=== PATIENT | female | born 1960 | race African-American/Black ===

== ENCOUNTER → 2017-01-06 | Outpatient (CLI) | payer OTHER ==
[2016-03-26 04:44] VITALS: BP 144/86
--- NOTE | 2017-01-06 12:15 | MG ---
HISTORY: SCREENING Comparison: Multiple priors dating back to 2007 FINDINGS: Bilateral CC and MLO projections of the right and left breast were obtained. Heterogeneously dense fibroglandular tissue is seen to be present without suspicious interval change. No significant arch itectural distortion, mass or clustered microcalcifications can be observed to suggest malignancy. No skin thickening or nipple retraction is appreciated. No pathological lymphadenopathy can be alfredo ntified. IMPRESSION: NO RADIOGRAPHIC EVIDENCE OF MALIGNANCY. ACR CATEGORY I - NEGATIVE EXAM. FOLLOW-UP EXAM 1 YEAR. Diagnostic CAD was utilized and reviewed. * 0 (ZERO) - ASSESSMENT INCOMPLETE; ADDITIONAL IMAGING IS NEEDED. * / (ONE) - NEGATIVE. * 2/II (TWO) - BENIGN FINDINGS. * 3/III (THREE) - PROBABLY BENIGN FINDING; SHORT INTERVAL FOLLOW-UP SUGGESTED. * 4/IV (FOUR) - SUSPICIOUS ABNORMALITY; BIOPSY SHOULD BE CONSIDERED. * 5/V (FIVE) - HIGHLY SUSPICIOUS OF MALIGNANCY; BIOPSY SHOULD BE PERFORMED. A NEGATIVE X-RAY REPORT SHOULD NOT DELAY BIOPSY IF A DOMINANT OR CLINICALLY SUSPICIOUS MASS IS PRESENT; 4 TO 8 PERCENT OF CANCERS ARE NOT IDENTIFIED BY X-RAY. A NEG ATIVE REPORT MAY REINFORCE THE CLINICAL IMPRESSION. ADENOSIS AND DENSE BREASTS MAY OBSCURE AN UNDER LYING NEOPLASM. Reported By:
== END ==
LOC: RAD 09:54
PROVIDERS: ATTEND Internal Medicine
DX: Z12.31 Encounter for screening mammogram for malignant neoplasm of breast (principal)
CPT/HCPCS: 77067

== ENCOUNTER 2017-08-30 19:51 | Emergency (ER) | payer SELFPAY ==
[2017-08-30 20:16] VITALS: BMI 30.7
[2017-08-30] MEDS ORDERED: TORADOL 30 MG VIAL IVP ONE (20:44)
[2017-08-30] MEDS ORDERED: NS 1000 ML 1,000 ML ONE (20:46)
--- NOTE | 2017-08-30 20:46 | DR.GENAD ---
HPI - PCP Primary Care Physician: - Complaint/Symptoms Chief Complaint Doctors Comments: Patient presents to the ED with complaint of headache, cough, congestion and body aches for two days. She denies getting influenza shot. Chief Complaint:: HEAD IS ABOUT TO BUST, COUGHING, SORE THROAT BODY HURTS ALL OVER - Source History Provided: Patient - Mode of Arrival Mode of Arrival: Ambulatory - Timing Onset of Chief Complaint: 08/29/17 PMH - PMH Past Medical History: Yes Past Medical History: Hypertension Past Surgical History: Yes Surgical History: Hysterectomy - Family History History of Family Medical Conditions: Yes Family Medical History: Cancer, Hypertension - Social History Does patient currently use any type of tobacco product: No Have you used tobacco products in the last 12 months: No Type of Tobacco Use: None Does any household member use tobacco: Yes Alcohol Use: Occasionally Do you use any recreational Drugs:: No Lives With: Family Lives Where: Home - infectious screening In the last 2 months have you had wt loss of >10#?: YES Have you had fever, night sweats or hemotysis?: No Have you traveled outside the country in the last 6 months?: No Isolation: Standard ROS - Review of Systems Eyes: No Symptoms Reported ENTM: Nose Discharge Respiratoy: No Symptoms Reported Cardiovascular: No Symptoms Reported Gastrointestinal/Abdominal: No Symptoms Reported Genitourinary: No Symptoms Reported Neurological: Headache Musculoskeletal: Muscle Pain Integumentary: No Symptoms Reported Hematologic/Lymphatic: No Symptoms Reported Endocrine: No Symptoms Reported Psychiatric: No Symptoms Reported All Other Systems: Reviewed and Negative PE - Vital Signs Vitals: Temperature 99.5 F Pulse Rate 118 Respiratory Rate 24 Blood Pressure [Right Arm] 144/86 Blood Pressure [Left Arm] 200/100 Blood Pressure 122/90 O2 Sat by Pulse Oximetry 98 - General General Appearance: Alert, In No Apparent Distress - Head Head Exam: Normal Inspection, Atraumatic - Eyes Eye exam: Normal Appearance, PERRL, EOMI - ENT ENT Exam: Normal Exam External Ear Exam: Normal External Inspection TM/Canal Exam: Bilateral Normal Nose Exam: Normal Nose Exam Mouth Exam: Normal Inspection Throat Exam: Normal Inspection - Neck Neck Exam: Normal Inspection - Chest Chest Inspection: Normal Inspection, Symmetric Chest Wall Rise - Respiratory Respiratory Exam: Normal Lung Sounds Bilat Respiratory Exam: Bilateral Clear to Auscultation - Cardiovascular Cardiovascular Exam: Regular Rate, Tachycardia - Abdominal Exam Abdominal Exam: Normal Inspection Abdominal Tenderness: negative: RUQ, RLQ, LUQ, LLQ, Epigastrium, Suprapubic, Diffuse, Mild, Moderate, Severe, Other - Extremities Extremities Exam: Normal Inspection - Back Back Exam: Normal Inspection - Neurologic Neurological Exam: Alert, Oriented X3, CN II-XII Intact - Psychiatric Psychiatric Exam: Normal Affect - Skin Skin Exam: Warm, Dry, Intact Course - Reevaluation 1st: Improved ROR - Labs Reviewed Laboratory Results Reviewed?: Yes (influenza A positive) Laboratory: Streptococcus Screen Negative (NEGATIVE) 08/30/17 20:38 - Diagnosis Discharge Problem: Influenza A - Discharge Plan Condition: Stable - Follow ups/Referrals Follow ups/Referrals: VANIA FERNANDEZ [Primary Care Provider] - 3 days - Instructions
[2017-08-30] MEDS ORDERED: TORADOL 30 MG VIAL ONE (20:57)
--- NOTE | 2017-08-30 21:44 | RAD ---
Chest, AP portable Indication: Cough, fever Comparison: 03/24/2016 Findings: The heart size is normal. The lungs are clear without focal infiltrates or pleural effusion . Impression: No acute chest process or significant change from prior. Reported By:
[2017-08-30 22:03] VITALS: BP 148/80
== END 2017-08-30 21:52 | disposition home or self-care (01) ==
LOC: ER 19:51
DX: R05 Cough (principal); R09.89 Other specified symptoms and signs involving the circulatory and respiratory systems; R52 Pain, unspecified
CPT/HCPCS: 71010; 87070; 87502; 87880; 96365; 96374; 99283; A4222; J1885

== ENCOUNTER 2019-06-30 11:24 | Observation (INO) ==
[2019-06-30] MEDS ORDERED: ZOFRAN INJ 4 MG VIAL IVP PRN (13:36)
[2019-06-30 13:39] VITALS: BMI 19.8
[2019-06-30 13:58] LABS: BASOPHILS % (AUTO) 1.2 % (0.2-1.0); EOSINOPHILS % (AUTO) 0.8 % (0.9-2.9); HEMATOCRIT 35.4 % (36.0-47.0); HEMOGLOBIN 12.5 g/dL (12.0-16.0); LYMPHOCYTES # (AUTO) 1.5 X10^3/uL (1.3-2.9); LYMPHOCYTES % (AUTO) 43.2 % (21.0-51.0); MEAN CORPUSCULAR HGB CONC 35.3 g/dL (33.0-35.0); MEAN CORPUSCULAR VOLUME 90.6 fL (80.0-100.0); MEAN PLATELET VOLUME 6.6 fL (7.4-11.0); MONOCYTES # (AUTO) 0.5 x10^3/uL (0.3-0.8); MONOCYTES % (AUTO) 13.7 % (0.0-13.0); NEUTROPHILS # (AUTO) 1.5 x10^3/uL (2.2-4.8); NEUTROPHILS % (AUTO) 41.1 % (42.0-75.0); PLATELET COUNT 161 X10^3/uL (150.0-450.0); WHITE BLOOD COUNT 3.5 X10^3/uL (3.6-10.0)
--- NOTE | 2019-06-30 14:01 | RAD ---
HISTORY: Hypertension Study: Chest AP portable Comparison: 06/02/2019 Findings: The heart is within normal limits in size. The mary are normal. The lungs are well inflated and free of acute alveolar infiltrates. No pleural effusions are identified. The bony thorax is unremarkable. IMPRESSION: No significant abnormality identified Reported By:
[2019-06-30 14:09] LABS: ALANINE AMINOTRANSFERASE 83 Units/L (12-78); ALBUMIN 3.6 g/dL (3.4-5.0); ALKALINE PHOSPHATASE 83 Units/L (46-116); AMYLASE 137 Units/L (25-115); ASPARTATE AMINO TRANSFERASE 279 Units/L (15-37); BLOOD UREA NITROGEN 3 mg/dL (7-18); CALCIUM 8.7 mg/dL (8.5-10.1); CARBON DIOXIDE 26.8 mmol/L (21-32); CHLORIDE 100 mmol/L (98-107); COR NA(FOR HYPERGLY) 138 mmol/L (136-145); CREATININE 0.58 mg/dL (0.55-1.02); LIPASE 648 Units/L (73-393); MAGNESIUM 1.7 mg/dL (1.7-2.9); SODIUM 138 mmol/L (136-145); TOTAL PROTEIN 7.6 g/dL (6.4-8.2); eGFR NON BLACK RACES > 60 (>60)
[2019-06-30] MEDS: PROTONIX INJ 40 MG VIAL IVP SCH (15:28)
[2019-06-30] MEDS: NS 1000 ML 1,000 ML IV SCH (15:28)
[2019-06-30 15:44] LABS: BILIRUBIN,URINE NEGATIVE (NEGATIVE); BLOOD/HEMOGLOBIN,URINE NEGATIVE (NEGATIVE); GLUCOSE, URINE NEGATIVE (NEGATIVE); KETONES,URINE NEGATIVE (NEGATIVE); LEUKOCYTE ESTERASE ,URINE NEGATIVE (NEGATIVE); NITRITES,URINE NEGATIVE (NEGATIVE); PROTEIN,URINE NEGATIVE (NEGATIVE); UROBILINOGEN,URINE NORMAL (NORMAL)
[2019-06-30 15:49] LABS: APPEARANCE,URINE CLEAR (CLEAR); COLOR,URINE YELLOW (YELLOW)
--- NOTE | 2019-06-30 16:48 | CT ---
History: Abdominal pain and unexplained weight loss Study: CT of abdomen and pelvis after oral enhancement of the gastrointestinal tract and after intravenous infusion of 100 mL Omnipaque 350. Comparison: None Findings: The visualized lung bases are clear. The liver and spleen and pancreas and adrenal glands are unremarkable. The kidneys are unremarkable without mass or hydronephrosis. There is no bowel distention or inflammation. There is no ascites or adenopathy. The prostate is prominent in size. The urinary bladder is unremarkable. No significant bony abnormality is demonstrated. The gallbladder is unremarkable. The uterus is apparently absent. No adnexal mass is demonstrated. Impression: Negative CT abdomen and pelvis Reported By:
--- NOTE | 2019-06-30 17:25 | DR.H&P ---
H&P - History & Physical for Day of: H&P Date: 06/30/19 - Chief Complaint Chief Complaint: weakness, "CAN'T EAT" weight loss, diarrhea, upper abdominal pain - History of Present Illness History of Present Illness: 59 [address] IRVING OFFICE AFTER PRESENTING WITH CO ELEVATED BP, BEEN OUT OF MEDICATION, ABDOMINAL PAIN WITH UNEXPLAINED WEIGHT LOSS, DYSPHAGIA AND DIARRHEA. PT BP IN OFFICE 190/110. PT WAS GIVEN CATAPRES .1. PT STATES SHE WAS SEEN IN ER ON 06/02 AND DIAGNOSED WITH BRONCHITIS, COMPLETED AMOXIL BY CONTINUES WITH SORE THROAT, TROUBLE SWALLOWING AND THROWS UP AFTER EATING ANYTHING. PT REPORTS BASE WEIGHT 120LBS, PT WEIGHT IN OFFICE 94 LBS. PT HAS PMH OF HTN. PT ADMITTED FOR TREATMENT OF ACUTE ILLNESS. - Past Medical History Past Medical History: Hypertension - Past Surgical History Surgical History: Hysterectomy - Family History Family Medical History: Cancer, Hypertension - Social History Does patient currently use any type of tobacco product: Yes Have you used tobacco products in the last 12 months: No Type of Tobacco Use: Smokeless How many years tobacco product used: 40 Does any household member use tobacco: No Alcohol Use: DAILY Drug Use: None - Medications Home Medications: No Known Drug Allergies Allergy (Verified 05/06/18 09:21) - Review of Systems Constitutional: Chills, Weakness, Malaise Eyes: No Symptoms Reported ENT: Throat Pain Respiratory: SOB with Excertion Cardiovascular: Light Headedness Gastrointestinal: Nausea, Vomiting, Abdominal Pain, Diarrhea Genitourinary: No Symptoms Reported Musculoskeletal: No Symptoms Reported Skin: No Symptoms Reported Neurological: Weakness - Physical Exam Vital Signs: Temperature 98.6 F Pulse Rate [Left Brachial] 80 Respiratory Rate 18 Blood Pressure [Right Arm] 157/93 Blood Pressure [Left Arm] 175/100 Blood Pressure 198/100 O2 Sat by Pulse Oximetry 98 Oriented: Normal Ear: Normal Nose: Normal Throat: Red, Other (ERYTHEMATOUS LESIONS TO POSTERIOR PHARYNX) Respiratory: RLL Diminished, LLL Diminished Cardiovascular: Normal, Irregular. negative: Edema Auscultation: Bowel Sounds: Normal Tenderness: RUQ, LUQ, Epigastric, Moderate Skin: Decreased Turgur Musculoskeletal: Normal Psychiatric: Anxiety Affect: Anxious Speech Pattern: Clear, Appropriate - Assessment/Plan (1) Severe uncontrolled hypertension Status: Acute Plan: ADMIT, ADMISSION LABS. ACUTE HEPATITIS PANEL. CT ABD PELVIS. CXR, EKG ON ADMISSION. UA, BP CONTROL, PRN HYDRALAZINE, IV HYDRATION , GI CONSULT (2) Abdominal pain Status: Acute (3) Dysphagia Status: Acute (4) Chronic diarrhea Status: Acute (5) Unintentional weight loss Status: Acute - Allergies Allergies/Adverse Reactions: Allergies Allergy/AdvReac Type Severity Reaction Status Date / Time No Known Drug Allergies Allergy Verified 05/06/18 09:21
[2019-06-30] MEDS: APRESOLINE INJ 20 MG VIAL IVP PRN ×2 (17:28→23:08)
[2019-07-01] MEDS: NS 1000 ML 1,000 ML IV SCH ×3 (03:23→18:07)
[2019-07-01 05:22] LABS: BASOPHILS # (AUTO) 0.1 X10^3/uL (0.0-0.1); BASOPHILS % (AUTO) 1.1 % (0.2-1.0); EOSINOPHILS % (AUTO) 0.2 % (0.9-2.9); HEMATOCRIT 36.3 % (36.0-47.0); HEMOGLOBIN 12.8 g/dL (12.0-16.0); LYMPHOCYTES # (AUTO) 1.2 X10^3/uL (1.3-2.9); LYMPHOCYTES % (AUTO) 24.2 % (21.0-51.0); MEAN CORPUSCULAR HEMOGLOBIN 31.9 pg (27.0-34.0); MEAN CORPUSCULAR HGB CONC 35.4 g/dL (33.0-35.0); MEAN CORPUSCULAR VOLUME 90.3 fL (80.0-100.0); MEAN PLATELET VOLUME 7.1 fL (7.4-11.0); MONOCYTES # (AUTO) 0.9 x10^3/uL (0.3-0.8); MONOCYTES % (AUTO) 18.9 % (0.0-13.0); NEUTROPHILS # (AUTO) 2.7 x10^3/uL (2.2-4.8); NEUTROPHILS % (AUTO) 55.6 % (42.0-75.0); PLATELET COUNT 168 X10^3/uL (150.0-450.0); RED BLOOD COUNT 4.02 X10^6/uL (3.5-5.4); RED CELL DISTRIBUTION WIDTH 13.9 % (11.6-16.5); WHITE BLOOD COUNT 4.8 X10^3/uL (3.6-10.0)
[2019-07-01 05:43] LABS: ALANINE AMINOTRANSFERASE 64 Units/L (12-78); ALBUMIN 3.4 g/dL (3.4-5.0); ALKALINE PHOSPHATASE 75 Units/L (46-116); ASPARTATE AMINO TRANSFERASE 115 Units/L (15-37); BLOOD UREA NITROGEN 3 mg/dL (7-18); CALCIUM 8.9 mg/dL (8.5-10.1); CARBON DIOXIDE 23.3 mmol/L (21-32); CHLORIDE 101 mmol/L (98-107); CREATININE 0.52 mg/dL (0.55-1.02); SODIUM 138 mmol/L (136-145); TOTAL PROTEIN 7.4 g/dL (6.4-8.2); eGFR NON BLACK RACES > 60 (>60)
[2019-07-01 06:16] LABS: AMYLASE 121 Units/L (25-115); LIPASE 538 Units/L (73-393)
[2019-07-01] MEDS ORDERED: KLOR-CON PO PRN (07:27)
[2019-07-01] MEDS ORDERED: POTASSIUM CHL 60 MEQ/NS 0.45% 500 ML IV PRN (07:27)
[2019-07-01] MEDS ORDERED: MICRO K EXTEN CAP 10 MEQ PO PRN (07:27)
[2019-07-01] MEDS ORDERED: POTASSIUM CHL 40 MEQ/NS 0.45% 500 ML IV PRN (07:27)
[2019-07-01] MEDS ORDERED: K-DUR TAB 20 MEQ PO PRN (07:27)
[2019-07-01] MEDS ORDERED: POTASSIUM CHLORIDE LIQ 20 MEQ UDC PO PRN (07:27)
[2019-07-01] MEDS ORDERED: K-RIDER 10 MEQ/NS 100 ML 10 MEQ/100 ML BAG IV PRN (07:27)
[2019-07-01] MEDS ORDERED: VISTARIL PO PRN (09:16)
[2019-07-01] MEDS: PROTONIX INJ 40 MG VIAL IVP SCH (09:52)
[2019-07-01] MEDS ORDERED: DIPRIVAN VIAL 20 ML ONE ×2 (10:34→10:54)
[2019-07-01] MEDS: LIBRIUM PO PRN ×2 (12:25→20:12)
[2019-07-01] MEDS: APRESOLINE INJ 20 MG VIAL IVP PRN (12:35)
[2019-07-01] MEDS ORDERED: STERILE WATER IRRIGATION IR ONE (14:33)
[2019-07-01] MEDS ORDERED: LEVSIN/MAALOX/LIDOC VISC PO PRN (14:35)
[2019-07-01] MEDS ORDERED: ZESTRIL TAB 20 MG ONE (14:47)
[2019-07-01] MEDS: NYSTATIN SUSP MT SCH ×3 (14:49→20:11)
[2019-07-01] MEDS: ZESTRIL TAB 20 MG PO SCH (14:49)
[2019-07-01] MEDS: CATAPRES TAB 0.1 MG PO SCH ×2 (14:50→20:11)
[2019-07-01 15:11] LABS: CREATINE KINASE 102 Units/L (26-192); CREATINE KINASE MB < 1.0 ng/mL (0-4.0); TROPONIN I < 0.02 ng/mL (0-1.5)
[2019-07-01] MEDS ORDERED: DIPRIVAN VIAL ONE (15:46)
[2019-07-01] MEDS ORDERED: NORMODYNE INJ 20 MG VIAL ONE (15:46)
[2019-07-02] MEDS: NS 1000 ML 1,000 ML IV SCH ×2 (05:03→16:35)
[2019-07-02 05:14] LABS: BASOPHILS % (AUTO) 0.7 % (0.2-1.0); EOSINOPHILS # (AUTO) 0.1 x10^3/uL (0.0-0.2); EOSINOPHILS % (AUTO) 1.6 % (0.9-2.9); HEMATOCRIT 34.3 % (36.0-47.0); HEMOGLOBIN 12.2 g/dL (12.0-16.0); LYMPHOCYTES # (AUTO) 1.3 X10^3/uL (1.3-2.9); LYMPHOCYTES % (AUTO) 38.7 % (21.0-51.0); MEAN CORPUSCULAR HEMOGLOBIN 32.4 pg (27.0-34.0); MEAN CORPUSCULAR HGB CONC 35.5 g/dL (33.0-35.0); MEAN CORPUSCULAR VOLUME 91.3 fL (80.0-100.0); MEAN PLATELET VOLUME 7.3 fL (7.4-11.0); MONOCYTES # (AUTO) 0.5 x10^3/uL (0.3-0.8); MONOCYTES % (AUTO) 14.2 % (0.0-13.0); NEUTROPHILS # (AUTO) 1.5 x10^3/uL (2.2-4.8); NEUTROPHILS % (AUTO) 44.8 % (42.0-75.0); PLATELET COUNT 141 X10^3/uL (150.0-450.0); RED BLOOD COUNT 3.75 X10^6/uL (3.5-5.4); RED CELL DISTRIBUTION WIDTH 13.6 % (11.6-16.5); WHITE BLOOD COUNT 3.4 X10^3/uL (3.6-10.0)
[2019-07-02 05:22] LABS: ALANINE AMINOTRANSFERASE 51 Units/L (12-78); ALKALINE PHOSPHATASE 65 Units/L (46-116); ASPARTATE AMINO TRANSFERASE 97 Units/L (15-37); BLOOD UREA NITROGEN 4 mg/dL (7-18); CALCIUM 8.4 mg/dL (8.5-10.1); CARBON DIOXIDE 25.6 mmol/L (21-32); CHLORIDE 104 mmol/L (98-107); COR CA(FOR HYPOALB) 9.2 mg/dL (8.5-10.1); CREATININE 0.64 mg/dL (0.55-1.02); SODIUM 140 mmol/L (136-145); TOTAL PROTEIN 6.6 g/dL (6.4-8.2); eGFR NON BLACK RACES > 60 (>60)
[2019-07-02] MEDS: MAGNESIUM SULFATE 1 GRAM/100 mL PREMIX 1 GM/100 ML BAG IV PRN ×2 (06:12→07:01)
[2019-07-02] MEDS: NYSTATIN SUSP MT SCH ×2 (10:02→15:19)
[2019-07-02] MEDS: LIBRIUM PO PRN (10:02)
[2019-07-02] MEDS: CATAPRES TAB 0.1 MG PO SCH (10:03)
[2019-07-02] MEDS: ZESTRIL TAB 20 MG ONE ×2 (10:03→16:42)
[2019-07-02] MEDS: ZESTRIL TAB 20 MG PO SCH (10:03)
[2019-07-02] MEDS: PROTONIX INJ 40 MG VIAL IVP SCH (10:03)
[2019-07-02 11:38] VITALS: BP 196/90
--- NOTE | 2019-07-02 11:54 | DR.PROGNOT ---
Hospital Progress Notes - Progress Note for Day of: Progress Note Date: 07/02/19 - Chief Complaint Chief Complaint: s/p EGD with dilation . tolerating oral intake . able to swallow without difficulty . only mild abdominal pain .no nausea - Past Medical Family Social History Past Med/Fam/Surg Hx: No changes since H&P Allergies: Allergies No Known Drug Allergies Allergy (Verified 05/06/18 09:21) - Review Of Systems ROS: No change since H&P - Vital Signs Vital Signs: Temperature 99.0 F Pulse Rate [Left Brachial] 84 Respiratory Rate 18 Blood Pressure [Right Arm] 196/90 Blood Pressure [Left Arm] 189/98 Blood Pressure 198/100 O2 Sat by Pulse Oximetry 100 - Physical Exam Oriented: Normal Ear: Normal Nose: Normal Throat: Red, Other (ERYTHEMATOUS LESIONS TO POSTERIOR PHARYNX) Cardiovascular: Normal, Irregular. negative: Edema GI:Auscultation: Normal GI: Tenderness: RUQ, LUQ, Epigastric (soft, flat abdomen with only mild epigastric tederness , BS+), Moderate Skin: Decreased Turgur Musculoskeletal: Normal Psychiatric: Anxiety Affect: Anxious Speech Pattern: Clear, Appropriate - Laboratory and Diagnostics Result Diagrams: 07/02/19 04:46 07/02/19 09:28 Labs: Laboratory WBC 3.4 X10^3/uL (3.6-10.0) L 07/02/19 04:46 RBC 3.75 X10^6/uL (3.5-5.4) 07/02/19 04:46 Hgb 12.2 g/dL (12.0-16.0) 07/02/19 04:46 Hct 34.3 % (36.0-47.0) L 07/02/19 04:46 MCV 91.3 fL (80.0-100.0) 07/02/19 04:46 MCH 32.4 pg (27.0-34.0) 07/02/19 04:46 MCHC 35.5 g/dL (33.0-35.0) H 07/02/19 04:46 RDW 13.6 % (11.6-16.5) 07/02/19 04:46 Plt Count 141 X10^3/uL (150.0-450.0) L 07/02/19 04:46 MPV 7.3 fL (7.4-11.0) L 07/02/19 04:46 Neut % (Auto) 44.8 % (42.0-75.0) 07/02/19 04:46 Lymph % (Auto) 38.7 % (21.0-51.0) 07/02/19 04:46 [place] % (Auto) 14.2 % (0.0-13.0) H 07/02/19 04:46 Eos % (Auto) 1.6 % (0.9-2.9) 07/02/19 04:46 Baso % (Auto) 0.7 % (0.2-1.0) 07/02/19 04:46 Neut # (Auto) 1.5 x10^3/uL (2.2-4.8) L 07/02/19 04:46 Lymph # (Auto) 1.3 X10^3/uL (1.3-2.9) 07/02/19 04:46 [place] # (Auto) 0.5 x10^3/uL (0.3-0.8) 07/02/19 04:46 Eos # (Auto) 0.1 x10^3/uL (0.0-0.2) 07/02/19 04:46 Baso # (Auto) 0.0 X10^3/uL (0.0-0.1) 07/02/19 04:46 Absolute Nucleated RBC 0.3 /100WBC 07/02/19 04:46 Sodium 140 mmol/L (136-145) 07/02/19 04:46 Corrected Sodium TNP 07/02/19 04:46 Potassium 3.8 mmol/L (3.5-5.1) 07/02/19 09:28 Chloride 104 mmol/L (98-107) 07/02/19 04:46 Carbon Dioxide 25.6 mmol/L (21-32) 07/02/19 04:46 BUN 4 mg/dL (7-18) L 07/02/19 04:46 Creatinine 0.64 mg/dL (0.55-1.02) 07/02/19 04:46 Est GFR (MDRD) Af Amer > 60 (>60) 07/02/19 04:46 Est GFR (MDRD) Non-Af > 60 (>60) 07/02/19 04:46 Glucose 96 mg/dL (65-99) 07/02/19 04:46 Calcium 8.4 mg/dL (8.5-10.1) L 07/02/19 04:46 Corrected Calcium 9.2 mg/dL (8.5-10.1) 07/02/19 04:46 Magnesium 1.7 mg/dL (1.7-2.9) 07/02/19 04:46 Total Bilirubin 1.60 mg/dL (0.2-1.0) H 07/02/19 04:46 AST 97 Units/L (15-37) H 07/02/19 04:46 ALT 51 Units/L (12-78) 07/02/19 04:46 Alkaline Phosphatase 65 Units/L (46-116) 07/02/19 04:46 Creatine Kinase 102 Units/L (26-192) 07/01/19 14:37 CK-MB (CK-2) < 1.0 ng/mL (0-4.0) 07/01/19 14:37 CK/CKMB % Calc 1.0 % (<4) 07/01/19 14:37 Troponin I < 0.02 ng/mL (0-1.5) 07/01/19 14:37 Total Protein 6.6 g/dL (6.4-8.2) 07/02/19 04:46 Albumin 3.0 g/dL (3.4-5.0) L 07/02/19 04:46 Globulin 3.6 g/dL (2.5-4.5) 07/02/19 04:46 Albumin/Globulin Ratio 0.8 Ratio (1.1-2.1) L 07/02/19 04:46 Amylase 121 Units/L (25-115) H 07/01/19 05:05 Lipase 538 Units/L (73-393) H 07/01/19 05:05 Specimen Type Clean catch urine 06/30/19 15:30 Urine Color Yellow (YELLOW) 06/30/19 15:30 Urine Appearance Clear (CLEAR) 06/30/19 15:30 Urine pH 5.0 (5.0 - 8.0) 06/30/19 15:30 Ur Specific [place] 1.010 (1.000-1.030) 06/30/19 15:30 Urine Protein Negative (NEGATIVE) 06/30/19 15:30 Urine Glucose (UA) Negative (NEGATIVE) 06/30/19 15:30 Urine Ketones Negative (NEGATIVE) 06/30/19 15:30 Urine Occult Blood Negative (NEGATIVE) 06/30/19 15:30 Urine Nitrite Negative (NEGATIVE) 06/30/19 15:30 Urine Bilirubin Negative (NEGATIVE) 06/30/19 15:30 Urine Urobilinogen Normal (NORMAL) 06/30/19 15:30 Ur Leukocyte Esterase Negative (NEGATIVE) 06/30/19 15:30 Tissue Pathology To follow 07/01/19 11:01 - Assessment and Plan 1: 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 s/p Dilation with good results . will need repeated dilation in few months. same Protonix 40 BID . soft diet . will follow in 2 weeks . - Problem Patient Problems: Patient Problems Dysphagia (Acute) R13.10 Chronic diarrhea (Acute) K52.9 Abdominal pain (Acute) R10.9 Unintentional weight loss (Acute) R63.4
[2019-07-02 23:16] LABS: HEPATITIS B SURFACE ANTIGEN Negative (Negative)
== END 2019-07-02 14:07 | disposition home or self-care (01) ==
LOC: MED/SURG
PROVIDERS: ADMIT Internal Medicine; ATTEND Internal Medicine
DX: K44.9 Diaphragmatic hernia without obstruction or gangrene; R74.8 Abnormal levels of other serum enzymes; R94.31 Abnormal electrocardiogram [ECG] [EKG]; R10.84 Generalized abdominal pain; R63.4 Abnormal weight loss; Z79.899 Other long term (current) drug therapy; R13.11 Dysphagia, oral phase; K52.9 Noninfective gastroenteritis and colitis, unspecified; K22.2 Esophageal obstruction; I10 Essential (primary) hypertension; E83.42 Hypomagnesemia; I16.0 Hypertensive urgency; R53.1 Weakness
CPT/HCPCS: 36415; 71010; 71045; 74177; 80053; 80074; 81003; 82150; 82550; 82553; 83690; 83735; 84132; 84484; 85025; 86701; 86703; 87389; 93005; 96360; 96361; 96372; A4217; A4222; C9113; G0378; J0360; J2704; J3475; J3490; J7030

== ENCOUNTER 2021-08-08 14:59 | Observation (INO) ==
[2021-08-08 15:05] VITALS: BMI 21.4
[2021-08-08] MEDS ORDERED: APRESOLINE INJ 20 MG VIAL IVP ONE ×2 (15:36→20:16)
[2021-08-08] MEDS ORDERED: ZOFRAN INJ 4 MG VIAL IVP ONE (15:36)
[2021-08-08] MEDS ORDERED: ZOFRAN INJ 4 MG VIAL ONE (15:47)
[2021-08-08] MEDS ORDERED: APRESOLINE INJ 20 MG VIAL ONE ×2 (15:47→20:16)
--- NOTE | 2021-08-08 15:54 | DR.NAUSEAF ---
HPI Time Seen Time Seen by Provider: 08/08/21 15:53 Primary Care Physician Primary Care Physician: INÉS SNOWDEN Complaints Chief Complaint:: VOMITING SINCE LAST NIGHT, CAN'T KEEP DOWN. COVID-19 Coronavirus risk:travel/contact w/high risk person: No Has patient experienced Coronavirus symptoms: No Source History Provided: Patient Mode of Arrival Mode of Arrival: Wheelchair Timing Onset of Chief Complaint: 08/07/21 PMH PMH Past Medical History: Yes Past Medical History: Depression, Dyslipidemia and Hypertension Past Surgical History: Yes Surgical History: Hysterectomy and Tonsillectomy Family History History of Family Medical Conditions: Yes Family Medical History: Hypertension Social History Have you used tobacco products in the last 12 months: No Type of Tobacco Use: None Alcohol Use: Occasionally Do you use any recreational Drugs:: No Lives With: Family Lives Where: Home Travel Risk Coronavirus risk:travel/contact w/high risk person: No Has patient experienced Coronavirus symptoms: No Infectious screening In the last 2 months have you had wt loss of >10#?: NO Have you had fever, night sweats or hemotysis?: No Have you traveled outside the country in the last 6 months?: No Isolation: Standard ROS Review of Systems Constitutional: No Symptoms Reported and See HPI Eyes: No Symptoms Reported and See HPI ENTM: No Symptoms Reported and See HPI Respiratoy: No Symptoms Reported and See HPI Cardiovascular: No Symptoms Reported and See HPI Gastrointestinal/Abdominal: No Symptoms Reported and See HPI Genitourinary: No Symptoms Reported and See HPI Neurological: No Symptoms Reported and See HPI Musculoskeletal: No Symptoms Reported and See HPI Integumentary: No Symptoms Reported and See HPI Hematologic/Lymphatic: No Symptoms Reported and See HPI Endocrine: No Symptoms Reported and See HPI Psychiatric: No Symptoms Reported and See HPI All Other Systems: Reviewed and Negative PE Vital Signs Vitals: Temperature 98.1 F Pulse Rate 91 Respiratory Rate 12 Blood Pressure [Right Arm] 144/86 Blood Pressure [Left Arm] 121/79 Blood Pressure [Standing] 106/71 Blood Pressure [Sitting] 110/70 Blood Pressure [Lying] 120/78 Blood Pressure 180/98 O2 Sat by Pulse Oximetry 98 General Limitations: No Limitations General Appearance: Alert and In No Apparent Distress Head Head Exam: Normal Inspection Eyes Eye exam: Normal Appearance ENT ENT Exam: Normal Exam Neck Neck Exam: Normal Inspection Chest Chest Inspection: Normal Inspection Respiratory Respiratory Exam: Normal Lung Sounds Bilat Respiratory Exam: Bilateral: Clear to Auscultation Cardiovascular Cardiovascular Exam: Regular Rate and Normal Rhythm Abdominal Exam Abdominal Exam: Normal Inspection, Normal Bowel Sounds and Soft Rectal Rectal Exam: Deferred External Exam: Female: Deferred : Speculum Exam (Female): Deferred : Bimanual Exam (female): Deferred Extremities Extremities Exam: Normal Inspection Back Back Exam: Normal Inspection Neurologic Neurological Exam: Alert and Oriented X3 Psychiatric Psychiatric Exam: Normal Affect and Normal Mood Skin Skin Exam: Warm, Dry, Intact and Normal Color ROR Labs Reviewed Result Diagrams: 08/08/21 15:40 08/08/21 15:40 Laboratory: WBC 7.2 X10^3/uL (3.6-10.0) 08/08/21 15:40 RBC 4.47 X10^6/uL (3.5-5.4) 08/08/21 15:40 Hgb 14.3 g/dL (12.0-16.0) 08/08/21 15:40 Hct 40.4 % (36.0-47.0) 08/08/21 15:40 MCV 90.3 fL (80.0-100.0) 08/08/21 15:40 MCH 32.1 pg (27.0-34.0) 08/08/21 15:40 MCHC 35.5 g/dL (33.0-35.0) H 08/08/21 15:40 RDW 12.4 % (11.6-16.5) 08/08/21 15:40 Plt Count 306 X10^3/uL (150.0-450.0) 08/08/21 15:40 MPV 7.4 fL (7.4-11.0) 08/08/21 15:40 Neut % (Auto) 75.5 % (42.0-75.0) H 08/08/21 15:40 Lymph % (Auto) 13.6 % (21.0-51.0) L 08/08/21 15:40 [place] % (Auto) 10.4 % (0.0-13.0) 08/08/21 15:40 Eos % (Auto) 0.0 % (0.9-2.9) L 08/08/21 15:40 Baso % (Auto) 0.5 % (0.2-1.0) 08/08/21 15:40 Neut # (Auto) 5.4 x10^3/uL (2.2-4.8) H 08/08/21 15:40 Lymph # (Auto) 1.0 X10^3/uL (1.3-2.9) L 08/08/21 15:40 [place] # (Auto) 0.8 x10^3/uL (0.3-0.8) 08/08/21 15:40 Eos # (Auto) 0.0 x10^3/uL (0.0-0.2) 08/08/21 15:40 Baso # (Auto) 0.0 X10^3/uL (0.0-0.1) 08/08/21 15:40 Absolute Nucleated RBC 0.1 /100WBC 08/08/21 15:40 Sodium 154 mmol/L (136-145) H* 08/08/21 15:40 Corrected Sodium 155 mmol/L (136-145) H 08/08/21 15:40 Potassium 3.1 mmol/L (3.5-5.1) L 08/08/21 15:40 Chloride 113 mmol/L (98-107) H 08/08/21 15:40 Carbon Dioxide 26.7 mmol/L (21-32) 08/08/21 15:40 BUN 19 mg/dL (7-18) H 08/08/21 15:40 Creatinine 0.71 mg/dL (0.55-1.02) 08/08/21 15:40 Est GFR (MDRD) Af Amer > 60 (>60) 08/08/21 15:40 Est GFR (MDRD) Non-Af > 60 (>60) 08/08/21 15:40 Glucose 130 mg/dL (65-99) H 08/08/21 15:40 Calcium 9.9 mg/dL (8.5-10.1) 08/08/21 15:40 Corrected Calcium TNP 08/08/21 15:40 Total Bilirubin 1.00 mg/dL (0.2-1.0) 08/08/21 15:40 AST 18 Units/L (15-37) 08/08/21 15:40 ALT 23 Units/L (12-78) 08/08/21 15:40 Alkaline Phosphatase 112 Units/L (46-116) 08/08/21 15:40 Total Protein 8.9 g/dL (6.4-8.2) H 08/08/21 15:40 Albumin 4.1 g/dL (3.4-5.0) 08/08/21 15:40 Globulin 4.8 g/dL (2.5-4.5) H 08/08/21 15:40 Albumin/Globulin Ratio 0.9 Ratio (1.1-2.1) L 08/08/21 15:40 Amylase 92 Units/L (25-115) 08/08/21 15:40 Lipase 84 Units/L (73-393) 08/08/21 15:40 Specimen Type Cancelled 08/08/21 Unknown Urine Color Cancelled 08/08/21 Unknown Urine Appearance Cancelled 08/08/21 Unknown Urine pH Cancelled 08/08/21 Unknown Ur Specific [place] Cancelled 08/08/21 Unknown Urine Protein Cancelled 08/08/21 Unknown Urine Glucose (UA) Cancelled 08/08/21 Unknown Urine Ketones Cancelled 08/08/21 Unknown Urine Occult Blood Cancelled 08/08/21 Unknown Urine Nitrite Cancelled 08/08/21 Unknown Urine Bilirubin Cancelled 08/08/21 Unknown Urine Urobilinogen Cancelled 08/08/21 Unknown Ur Leukocyte Esterase Cancelled 08/08/21 Unknown Urine RBC 0-2 /HPF (0-3) 08/08/21 19:34 Urine WBC 0-2 /HPF (0-5) 08/08/21 19:34 Ur Squamous Epith Cells Few /HPF (NEGATIVE) 08/08/21 19:34 Urine Bacteria Trace /HPF (NEGATIVE) 08/08/21 19:34 Hyaline Casts Few /LPF (NEGATIVE) 08/08/21 19:34 Urine Mucus Few /HPF (NEGATIVE) 08/08/21 19:34 Ur Culture Indicated? No/not indicated 08/08/21 19:34 Opioid Opioid Risk Tool Age (Reece box if 16-45): No History of Preadolescent Sexual Abuse: No Total: 0 Total Score Risk Category: Low Risk Copyright: Jaciel ALDRIDGE predicting aberrant behaviors
[2021-08-08 16:13] LABS: BASOPHILS % (AUTO) 0.5 % (0.2-1.0); HEMATOCRIT 40.4 % (36.0-47.0); HEMOGLOBIN 14.3 g/dL (12.0-16.0); LYMPHOCYTES % (AUTO) 13.6 % (21.0-51.0); MEAN CORPUSCULAR HEMOGLOBIN 32.1 pg (27.0-34.0); MEAN CORPUSCULAR HGB CONC 35.5 g/dL (33.0-35.0); MEAN CORPUSCULAR VOLUME 90.3 fL (80.0-100.0); MEAN PLATELET VOLUME 7.4 fL (7.4-11.0); MONOCYTES # (AUTO) 0.8 x10^3/uL (0.3-0.8); MONOCYTES % (AUTO) 10.4 % (0.0-13.0); NEUTROPHILS # (AUTO) 5.4 x10^3/uL (2.2-4.8); NEUTROPHILS % (AUTO) 75.5 % (42.0-75.0); PLATELET COUNT 306 X10^3/uL (150.0-450.0); RED BLOOD COUNT 4.47 X10^6/uL (3.5-5.4); RED CELL DISTRIBUTION WIDTH 12.4 % (11.6-16.5); WHITE BLOOD COUNT 7.2 X10^3/uL (3.6-10.0)
[2021-08-08 16:35] LABS: ALANINE AMINOTRANSFERASE 23 Units/L (12-78); ALBUMIN 4.1 g/dL (3.4-5.0); ALKALINE PHOSPHATASE 112 Units/L (46-116); AMYLASE 92 Units/L (25-115); ASPARTATE AMINO TRANSFERASE 18 Units/L (15-37); BLOOD UREA NITROGEN 19 mg/dL (7-18); CALCIUM 9.9 mg/dL (8.5-10.1); CARBON DIOXIDE 26.7 mmol/L (21-32); CHLORIDE 113 mmol/L (98-107); COR NA(FOR HYPERGLY) 155 mmol/L (136-145); CREATININE 0.71 mg/dL (0.55-1.02); LIPASE 84 Units/L (73-393); TOTAL PROTEIN 8.9 g/dL (6.4-8.2); eGFR NON BLACK RACES > 60 (>60)
[2021-08-08 16:38] LABS: SODIUM 154 mmol/L (136-145)
[2021-08-08] MEDS ORDERED: NS 1,000 ML IV 1,000 ML IV ONE (16:55)
[2021-08-08] MEDS ORDERED: NS 1,000 ML IV 1,000 ML ONE (17:03)
[2021-08-08] MEDS ORDERED: NS 1,000 ML IV 0 ML ONE (17:22)
[2021-08-08 19:59] LABS: BILIRUBIN,URINE NEGATIVE (NEGATIVE); BLOOD/HEMOGLOBIN,URINE NEGATIVE (NEGATIVE); GLUCOSE, URINE NEGATIVE (NEGATIVE); KETONES,URINE 2+ (NEGATIVE); LEUKOCYTE ESTERASE ,URINE NEGATIVE (NEGATIVE); NITRITES,URINE NEGATIVE (NEGATIVE); PROTEIN,URINE 1+ (NEGATIVE); UROBILINOGEN,URINE NORMAL (NORMAL)
[2021-08-08 20:12] LABS: APPEARANCE,URINE SLIGHTLY HAZY (CLEAR); BACTERIA,URINE TRACE /HPF (NEGATIVE); COLOR,URINE YELLOW (YELLOW); RBC,URINE 0-2 /HPF (0-3); SQUAMOUS EPITHELIAL CELL,UR FEW /HPF (NEGATIVE)
[2021-08-08 20:13] LABS: HYALINE CASTS, URINE FEW /LPF (NEGATIVE); MUCUS,URINE FEW /HPF (NEGATIVE)
--- NOTE | 2021-08-08 20:14 | CT ---
HISTORYVOMITING SINCE LAST NIGHT, CAN'T KEEP DOWNSTUDYSOFT TISSUE NECK W/O CONCOMPARISONNone available.TECHNIQUENoncontrast CT images of the neck were reformatted into sagittal and coronal planes for further evaluation.Radiation dose: 154.80 mGy-cm total DLPFINDINGSOropharynx and nasopharynx are unremarkable.Retropharyngeal and parapharyngeal spaces appear normal.Epiglotis and aryepiglottic folds appear normal.Glottis appears normal.Parotid and submandibular glands appear normal.Thyroid appears normalLung apices are clear of focal airspace disease.No lymphadenopathy.No acute osseous abnormality.Multilevel mild degenerative disc disease.Imaged portion of brain and intracranial vasculature appears normal.Sinuses and mastoid air cells are well aerated.Imaged portion of the globes and intraorbital contents appear normal.Fluid in the esophagus from above the level of the nithya to the most inferior image. Heterogeneous/high attenuation contents within the fluid at the inferior aspect of the scanned anatomy.IMPRESSION1. No acute abnormality identified.2. Fluid in the esophagus from above the level of the nithya to the most inferior image. Heterogeneous/high attenuation contents within the fluid at the inferior aspect of the scanned anatomy. Otherwise, unremarkable appearance of the imaged portion of the esophagus.Electronically signed by: Colt Lucia (Aug 08, 2021 20:12:49)
--- NOTE | 2021-08-08 21:50 | CT ---
CT abdomen and pelvis without contrastIndication: Vomiting.TECHNIQUEHelical images through the abdomen and pelvis without contrast. Coronal and sagittal reformats provided.COMPARISONCT neck from the same day. CT chest from December 02, [address] lumbar spine from May 17, 2021FINDINGSReview of bone windows demonstrates spine and pelvis DJD without destructive osseous lesion. Compression deformity at L2 again noted, with retropulsion of fracture fragments, similar in appearance to the prior from May 17, 2021. Hemangioma at L2 again noted.Limited images through the lower chest demonstrates round hypodensity with peripheral hyperdensity seen in the lower thoracic esophagus on axial image 14, with thick-walled esophagus and material seen above the esophagus, possibly due to obstruction. This measures 1.2 x 1.4 x 2.1 centimetersAbdomen: The liver, gallbladder, spleen, adrenal glands, pancreas, stomach and small bowel show no acute abnormality. No acute colonic abnormality is identified. The appendix is normal. Few vascular calcifications seen. The kidneys are normal without hydroureteronephrosis.Pelvis: Urinary bladder is normal. The rectum is thick-walled, and follow-up will be needed to exclude lesion. The uterus is absent. No adnexal region lesions seen.IMPRESSION1. Impacted food bolus at the gastroesophageal junction with adjacent hyperdensity. This compatible is with history of meat ingestion and food impaction.2. Thick-walled rectum. Patient will need follow-up imaging to exclude underlying inflammation of the rectum or neoplasia. Direct visualization and physical exam follow-up recommended.3. Fracture at L2 is similar to the prior.4. Discussed with Dr. Wu by Dr. SolisElectronically signed by: HEVER SOLIS (Aug 08, 2021 21:49:16)
[2021-08-08] MEDS ORDERED: GLUCAGEN IVP ONE (22:38)
[2021-08-08] MEDS ORDERED: NORMODYNE INJ 100 MG VIAL IVP ONE (23:17)
[2021-08-08] MEDS ORDERED: DEMEROL INJ IVP ONE (23:18)
[2021-08-08] MEDS ORDERED: KETALAR ONE (23:25)
[2021-08-08] MEDS ORDERED: XYLOCAINE 2 % (PLAIN) ONE (23:25)
[2021-08-08] MEDS ORDERED: NORMODYNE INJ 100 MG VIAL ONE ×2 (23:25→23:35)
[2021-08-08] MEDS ORDERED: GLUCAGEN ONE (23:34)
[2021-08-08] MEDS ORDERED: DEMEROL INJ ONE (23:35)
[2021-08-09] MEDS ORDERED: POTASSIUM CHL 40 MEQ/NS 0.45% 500 ML IV PRN (00:13)
[2021-08-09] MEDS ORDERED: KLOR-CON PO PRN (00:13)
[2021-08-09] MEDS ORDERED: MAGNESIUM SULFATE 1 GRAM/100 mL PREMIX 1 G/100 ML BAG IV PRN (00:13)
[2021-08-09] MEDS ORDERED: POTASSIUM CHLORIDE LIQ 20 MEQ UDC PO PRN (00:13)
[2021-08-09] MEDS ORDERED: POTASSIUM CHL 60 MEQ/NS 0.45% 500 ML IV PRN (00:13)
[2021-08-09] MEDS ORDERED: K-DUR TAB 20 MEQ PO PRN (00:13)
[2021-08-09] MEDS ORDERED: MICRO K EXTEN CAP 10 MEQ PO PRN (00:13)
[2021-08-09] MEDS ORDERED: NS 1,000 ML IV 1,000 ML ONE ×2 (00:44→09:22)
[2021-08-09] MEDS ORDERED: K-RIDER 10 MEQ/NS 100 ML 0 MEQ/0 ML BAG IV ONE (00:44)
[2021-08-09] MEDS ORDERED: K-RIDER 10 MEQ/NS 100 ML 10 MEQ/100 ML BAG IV ONE ×4 (00:54→00:55)
[2021-08-09] MEDS: NS 1,000 ML IV 1,000 ML IV SCH ×3 (00:55→09:35)
[2021-08-09] MEDS: K-RIDER 10 MEQ/NS 100 ML 10 MEQ/100 ML BAG IV PRN ×4 (00:55→03:48)
[2021-08-09] MEDS ORDERED: PEPCID 20 MG IV PREMIX* 20 MG/50 ML BAG IV PRN (01:49)
[2021-08-09] MEDS ORDERED: ZOFRAN INJ 4 MG VIAL IVP PRN (01:49)
[2021-08-09] MEDS ORDERED: MORPHINE SULFATE INJ 2 MG INJ IVP PRN (01:49)
[2021-08-09] MEDS ORDERED: DEMEROL INJ IVP PRN (05:43)
[2021-08-09] MEDS ORDERED: LABETALOL HCL IVP PRN (05:43)
[2021-08-09] MEDS ORDERED: VASOTEC INJ 2.5 MG VIAL IVP PRN (05:43)
[2021-08-09] MEDS ORDERED: ZOFRAN INJ 4 MG VIAL ONE (05:56)
[2021-08-09] MEDS ORDERED: APRESOLINE INJ 20 MG VIAL ONE ×3 (05:56→16:36)
[2021-08-09] MEDS ORDERED: DEMEROL INJ ONE (05:56)
[2021-08-09] MEDS: APRESOLINE INJ 20 MG VIAL IVP SCH ×3 (06:06→17:09)
[2021-08-09 06:51] LABS: ALANINE AMINOTRANSFERASE 19 Units/L (12-78); ALBUMIN 3.5 g/dL (3.4-5.0); ALKALINE PHOSPHATASE 92 Units/L (46-116); ASPARTATE AMINO TRANSFERASE 15 Units/L (15-37); BLOOD UREA NITROGEN 14 mg/dL (7-18); CALCIUM 9.2 mg/dL (8.5-10.1); CARBON DIOXIDE 26.4 mmol/L (21-32); CREATININE 0.54 mg/dL (0.55-1.02); TOTAL PROTEIN 7.6 g/dL (6.4-8.2); eGFR NON BLACK RACES > 60 (>60)
[2021-08-09 06:53] LABS: BASOPHILS % (AUTO) 0.5 % (0.2-1.0); EOSINOPHILS % (AUTO) 0.1 % (0.9-2.9); HEMATOCRIT 35.3 % (36.0-47.0); HEMOGLOBIN 12.5 g/dL (12.0-16.0); LYMPHOCYTES # (AUTO) 1.5 X10^3/uL (1.3-2.9); LYMPHOCYTES % (AUTO) 15.5 % (21.0-51.0); MEAN CORPUSCULAR HEMOGLOBIN 31.9 pg (27.0-34.0); MEAN CORPUSCULAR HGB CONC 35.3 g/dL (33.0-35.0); MEAN CORPUSCULAR VOLUME 90.5 fL (80.0-100.0); MEAN PLATELET VOLUME 7.8 fL (7.4-11.0); MONOCYTES # (AUTO) 1.1 x10^3/uL (0.3-0.8); MONOCYTES % (AUTO) 11.4 % (0.0-13.0); NEUTROPHILS % (AUTO) 72.5 % (42.0-75.0); PLATELET COUNT 270 X10^3/uL (150.0-450.0); RED BLOOD COUNT 3.91 X10^6/uL (3.5-5.4); RED CELL DISTRIBUTION WIDTH 12.7 % (11.6-16.5); WHITE BLOOD COUNT 9.6 X10^3/uL (3.6-10.0)
[2021-08-09 07:18] LABS: CHLORIDE 117 mmol/L (98-107); SODIUM 153 mmol/L (136-145)
[2021-08-09] MEDS ORDERED: VASOTEC INJ 2.5 MG VIAL ONE ×2 (07:55→16:36)
[2021-08-09] MEDS: VASOTEC INJ 2.5 MG VIAL IVP SCH ×3 (07:59→21:44)
[2021-08-09] MEDS ORDERED: NORMODYNE INJ 20 MG VIAL ONE (08:39)
[2021-08-09] MEDS ORDERED: NS 1/2 1,000 ML IV 1,000 ML IV ONE ×2 (09:33→17:16)
[2021-08-09] MEDS: NS 1/2 1,000 ML IV 1,000 ML IV SCH ×2 (09:35→17:17)
[2021-08-09 12:03] LABS: CKMB % 1.4 % (<4); CREATINE KINASE 70 Units/L (26-192); CREATINE KINASE MB < 1.0 ng/mL (0-4.0); TROPONIN I < 0.02 ng/mL (0-1.5)
--- NOTE | 2021-08-09 12:21 | RAD ---
HISTORYCHEST PAIN, HTN, FB IN ESOPHAGUSSTUDYCHEST x-ray, 1 VIEWCOMPARISONX-ray 12/02/2020FINDINGSThe trachea is midline. The cardiac silhouette is unremarkable. No obvious foreign body is seen in the mediastinum.Lungs appear clear. No pneumothorax or pleural effusion is seen.No acute bony abnormality is seen.IMPRESSIONNo acute cardiopulmonary abnormality is seen.Electronically signed by: Rafael Vargas (Aug 09, 2021 12:19:25)
[2021-08-09] MEDS ORDERED: CATAPRES TAB 0.1 MG ONE (13:51)
[2021-08-09] MEDS: CATAPRES TAB 0.1 MG PO PRN (14:00)
[2021-08-09] MEDS ORDERED: FLEXERIL TAB 10 MG PO PRN (14:20)
[2021-08-09] MEDS ORDERED: ZESTRIL TAB 20 MG ONE ×2 (14:22→21:25)
[2021-08-09] MEDS ORDERED: HYDROCHLOROTHIAZIDE 25 MG TAB ONE (14:22)
[2021-08-09] MEDS ORDERED: LOPRESSOR TAB 50 MG ONE (14:22)
[2021-08-09] MEDS: LOPRESSOR TAB 50 MG PO SCH ×2 (14:28→21:41)
[2021-08-09] MEDS: APRESOLINE TAB 25 MG PO SCH ×2 (14:29→21:47)
[2021-08-09] MEDS: ZESTRIL TAB 20 MG PO SCH ×2 (14:29→21:47)
[2021-08-09] MEDS ORDERED: DIPRIVAN VIAL 20 ML ONE (14:52)
[2021-08-09] MEDS ORDERED: GLUCAGEN ONE (15:11)
--- NOTE | 2021-08-09 15:36 | OR.IMMED ---
Immediate Post-Op Note - Immediate Post-Op Note Pre-Op Diagnosis: acute dysphagia with obstruction of he esophagus with food bolus Post-Op Diagnosis: lower esophageal stricture and obstruction with food bolus . esophagitis . Procedure: EGD , extraction of obstructing food bolus of the lower esophagus . Surgeon/Lease Analyst: Dr Martin Findings: as above .. Drains: NONE Complications: none Condition: Stable (on Protonix 40 BID .. F/U in one week .. requires dilation in the future ..)
--- NOTE | 2021-08-09 16:56 | DR.H&P ---
H&P - History & Physical for Day of: H&P Date: 08/08/21 - Chief Complaint Chief Complaint: Dysphagia - History of Present Illness History of Present Illness: Patient is a 61 year old AAF who is being admitted due to dysphagia, possible foreign body in throat, and hypertensive urgency. Patient reports she was eating meat on Thursday and choked however she was able to clear airway and breath normally. Reports she began having discomfort with swallowing immediately after incident. States she thought discomfort and dysphagia would go away but hasn't. States she feels like something is stuck in her throat. States she can swallow liquids but cannot swallow anything thicker. Denies CP, SOB, changes in bowel or bladder or any other concerns at present. PCP Dr. Montenegro. [facility] HTN. Patient states her BP is never controlled even with her PO meds. - Past Medical History Past Medical History: Hypertension, Dyslipidemia, Depression - Past Surgical History Surgical History: Hysterectomy, Tonsillectomy - Family History Family Medical History: Cancer, Hypertension - Social History Have you used tobacco products in the last 12 months: No Type of Tobacco Use: None Alcohol Use: Occasionally Drug Use: None - Medications Home Medications: No Known Drug Allergies Allergy (Verified 05/17/21 14:29) CONTINUE taking the following medications cyclobenzaprine 10 mg PO TID PRN 08/08/21 [History] gabapentin 100 mg PO TID 08/08/21 [History] hydralazine 50 mg PO TID 08/08/21 [History] lisinopril 20 mg PO BID 08/08/21 [History] metoprolol tartrate 50 mg PO BID 08/08/21 [History] - Review of Systems Constitutional: See HPI Eyes: See HPI ENT: See HPI Respiratory: See HPI Cardiovascular: See HPI Gastrointestinal: See HPI Genitourinary: See HPI Musculoskeletal: See HPI Skin: See HPI Neurological: See HPI - Physical Exam Vital Signs: Temperature 97.3 F Pulse Rate [Left Brachial] 80 Pulse Rate 91 Respiratory Rate 20 Blood Pressure [Right Arm] 144/86 Blood Pressure [Left Arm] 185/92 Blood Pressure [Standing] 106/71 Blood Pressure [Sitting] 110/70 Blood Pressure [Lying] 120/78 Blood Pressure 180/98 O2 Sat by Pulse Oximetry 98 Oriented: Normal, Time, Person, Place Eyes: Normal Ear: Normal Nose: Normal Throat: Red Respiratory: Clear Throughout Cardiovascular: Normal : Normal Auscultation: Bowel Sounds: Normal Palpation: Normal Tenderness: Normal Skin: Normal Musculoskeletal: Back:Lumbar, Tender Psychiatric: Normal Mood Description: Calm Affect: Normal Speech Pattern: Clear, Appropriate - Assessment/Plan (1) Nausea & vomiting Status: Acute Plan: Nausea control (2) Hypertensive urgency Status: Acute Plan: Verify home meds. Clonidine prn (3) Dysphagia Status: Acute Plan: Consult GI. Plan for EGD. NPO except meds (4) Foreign body Status: Acute Plan: R/O foreign body in throat - Allergies Allergies/Adverse Reactions: Allergies Allergy/AdvReac Type Severity Reaction Status Date / Time No Known Drug Allergies Allergy Verified 05/17/21 14:29
--- NOTE | 2021-08-09 17:13 | PCM.PROG ---
Progress Note - Subjective Subjective: Patient is a 61 year old AAF who was admitted due to dysphagia, possible foreign body in throat (meat), and hypertensive urgency. Home meds resumed today. Tentatively planned EGD today due to dysphagia. No major changes or concerns at present. - Past Medical Family Social History Past Med/Fam/Surg Hx: No changes since H&P Allergies: Allergies No Known Drug Allergies Allergy (Verified 05/17/21 14:29) - Review of Systems ROS: No change since H&P - Vital Signs and I&O's Vital Signs: Temperature 97.3 F Pulse Rate [Left Brachial] 80 Pulse Rate 91 Respiratory Rate 20 Blood Pressure [Right Arm] 144/86 Blood Pressure [Left Arm] 185/92 Blood Pressure [Standing] 106/71 Blood Pressure [Sitting] 110/70 Blood Pressure [Lying] 120/78 Blood Pressure 180/98 O2 Sat by Pulse Oximetry 98 Intake and Output: Intake & Output 08/06/21 08/07/21 08/08/21 08/09/21 23:59 23:59 23:59 23:59 Intake Total 1167 / 1167 Balance 1167 / 1167 - Physical Exam Oriented: Normal, Time, Person, Place Eyes: Normal Ear: Normal Nose: Normal Throat: Red Respiratory: Normal Cardiovascular: Normal : Normal Auscultation: Bowel Sounds: Normal Palpation: Normal Tenderness: Normal Skin: Normal Musculoskeletal: Back:Lumbar, Tender Psychiatric: Normal Mood Description: Calm Affect: Normal Speech Pattern: Clear, Appropriate - Laboratory and Diagnostics Result Diagrams: 08/09/21 05:20 08/09/21 05:20 Labs: Laboratory WBC 9.6 X10^3/uL (3.6-10.0) 08/09/21 05:20 RBC 3.91 X10^6/uL (3.5-5.4) 08/09/21 05:20 Hgb 12.5 g/dL (12.0-16.0) 08/09/21 05:20 Hct 35.3 % (36.0-47.0) L 08/09/21 05:20 MCV 90.5 fL (80.0-100.0) 08/09/21 05:20 MCH 31.9 pg (27.0-34.0) 08/09/21 05:20 MCHC 35.3 g/dL (33.0-35.0) H 08/09/21 05:20 RDW 12.7 % (11.6-16.5) 08/09/21 05:20 Plt Count 270 X10^3/uL (150.0-450.0) 08/09/21 05:20 MPV 7.8 fL (7.4-11.0) 08/09/21 05:20 Neut % (Auto) 72.5 % (42.0-75.0) 08/09/21 05:20 Lymph % (Auto) 15.5 % (21.0-51.0) L 08/09/21 05:20 [place] % (Auto) 11.4 % (0.0-13.0) 08/09/21 05:20 Eos % (Auto) 0.1 % (0.9-2.9) L 08/09/21 05:20 Baso % (Auto) 0.5 % (0.2-1.0) 08/09/21 05:20 Neut # (Auto) 7.0 x10^3/uL (2.2-4.8) H 08/09/21 05:20 Lymph # (Auto) 1.5 X10^3/uL (1.3-2.9) 08/09/21 05:20 [place] # (Auto) 1.1 x10^3/uL (0.3-0.8) H 08/09/21 05:20 Eos # (Auto) 0.0 x10^3/uL (0.0-0.2) 08/09/21 05:20 Baso # (Auto) 0.0 X10^3/uL (0.0-0.1) 08/09/21 05:20 Absolute Nucleated RBC 0.0 /100WBC 08/09/21 05:20 Sodium 153 mmol/L (136-145) H* 08/09/21 05:20 Corrected Sodium TNP 08/09/21 05:20 Potassium 3.5 mmol/L (3.5-5.1) 08/09/21 05:20 Chloride 117 mmol/L (98-107) H* 08/09/21 05:20 Carbon Dioxide 26.4 mmol/L (21-32) 08/09/21 05:20 BUN 14 mg/dL (7-18) 08/09/21 05:20 Creatinine 0.54 mg/dL (0.55-1.02) L 08/09/21 05:20 Est GFR (MDRD) Af Amer > 60 (>60) 08/09/21 05:20 Est GFR (MDRD) Non-Af > 60 (>60) 08/09/21 05:20 Glucose 107 mg/dL (65-99) H 08/09/21 05:20 Calcium 9.2 mg/dL (8.5-10.1) 08/09/21 05:20 Corrected Calcium TNP 08/09/21 05:20 Magnesium 2.5 mg/dL (1.7-2.9) 08/08/21 15:40 Total Bilirubin 0.80 mg/dL (0.2-1.0) 08/09/21 05:20 AST 15 Units/L (15-37) 08/09/21 05:20 ALT 19 Units/L (12-78) 08/09/21 05:20 Alkaline Phosphatase 92 Units/L (46-116) 08/09/21 05:20 Creatine Kinase 70 Units/L (26-192) 08/09/21 11:34 CK-MB (CK-2) < 1.0 ng/mL (0-4.0) 08/09/21 11:34 CK/CKMB % Calc 1.4 % (<4) 08/09/21 11:34 Troponin I < 0.02 ng/mL (0-1.5) 08/09/21 11:34 Total Protein 7.6 g/dL (6.4-8.2) 08/09/21 05:20 Albumin 3.5 g/dL (3.4-5.0) 08/09/21 05:20 Globulin 4.1 g/dL (2.5-4.5) 08/09/21 05:20 Albumin/Globulin Ratio 0.9 Ratio (1.1-2.1) L 08/09/21 05:20 Amylase 92 Units/L (25-115) 08/08/21 15:40 Lipase 84 Units/L (73-393) 08/08/21 15:40 Specimen Type Cancelled 08/08/21 Unknown Urine Color Cancelled 08/08/21 Unknown Urine Appearance Cancelled 08/08/21 Unknown Urine pH Cancelled 08/08/21 Unknown Ur Specific [place] Cancelled 08/08/21 Unknown Urine Protein Cancelled 08/08/21 Unknown Urine Glucose (UA) Cancelled 08/08/21 Unknown Urine Ketones Cancelled 08/08/21 Unknown Urine Occult Blood Cancelled 08/08/21 Unknown Urine Nitrite Cancelled 08/08/21 Unknown Urine Bilirubin Cancelled 08/08/21 Unknown Urine Urobilinogen Cancelled 08/08/21 Unknown Ur Leukocyte Esterase Cancelled 08/08/21 Unknown Urine RBC 0-2 /HPF (0-3) 08/08/21 19:34 Urine WBC 0-2 /HPF (0-5) 08/08/21 19:34 Ur Squamous Epith Cells Few /HPF (NEGATIVE) 08/08/21 19:34 Urine Bacteria Trace /HPF (NEGATIVE) 08/08/21 19:34 Hyaline Casts Few /LPF (NEGATIVE) 08/08/21 19:34 Urine Mucus Few /HPF (NEGATIVE) 08/08/21 19:34 Ur Culture Indicated? No/not indicated 08/08/21 19:34 SARS CoV-2 RNA Rapid CAROLE Negative (NEGATIVE) 08/08/21 23:52 - Plan (1) Nausea & vomiting Status: Resolved Plan: Nausea control (2) Hypertensive urgency Status: Acute Plan: Verify home meds. Clonidine prn (3) Dysphagia Status: Acute Plan: Consult GI. Plan for EGD. NPO except meds. See EMR (4) Foreign body Status: Acute Plan: R/O foreign body in throat
[2021-08-09] MEDS: PROTONIX INJ 40 MG VIAL IVP SCH (21:43)
[2021-08-09] MEDS: NEURONTIN CAP 100 MG PO SCH (21:47)
[2021-08-10] MEDS: NS 1/2 1,000 ML IV 1,000 ML IV SCH ×3 (02:01→21:57)
[2021-08-10] MEDS ORDERED: NS 1/2 1,000 ML IV 1,000 ML IV ONE ×3 (02:03→19:41)
[2021-08-10] MEDS: VASOTEC INJ 2.5 MG VIAL IVP SCH ×4 (03:00→21:58)
[2021-08-10] MEDS: NEURONTIN CAP 100 MG PO SCH ×3 (05:59→21:58)
[2021-08-10] MEDS: APRESOLINE TAB 25 MG PO SCH ×3 (05:59→21:58)
[2021-08-10 06:37] LABS: BASOPHILS % (AUTO) 0.5 % (0.2-1.0); EOSINOPHILS # (AUTO) 0.2 x10^3/uL (0.0-0.2); EOSINOPHILS % (AUTO) 1.9 % (0.9-2.9); HEMATOCRIT 36.2 % (36.0-47.0); HEMOGLOBIN 12.8 g/dL (12.0-16.0); LYMPHOCYTES # (AUTO) 2.5 X10^3/uL (1.3-2.9); LYMPHOCYTES % (AUTO) 29.6 % (21.0-51.0); MEAN CORPUSCULAR HEMOGLOBIN 31.9 pg (27.0-34.0); MEAN CORPUSCULAR HGB CONC 35.2 g/dL (33.0-35.0); MEAN CORPUSCULAR VOLUME 90.4 fL (80.0-100.0); MEAN PLATELET VOLUME 7.6 fL (7.4-11.0); MONOCYTES # (AUTO) 0.8 x10^3/uL (0.3-0.8); MONOCYTES % (AUTO) 9.7 % (0.0-13.0); NEUTROPHILS # (AUTO) 4.8 x10^3/uL (2.2-4.8); NEUTROPHILS % (AUTO) 58.3 % (42.0-75.0); PLATELET COUNT 263 X10^3/uL (150.0-450.0); RED CELL DISTRIBUTION WIDTH 12.2 % (11.6-16.5); WHITE BLOOD COUNT 8.3 X10^3/uL (3.6-10.0)
[2021-08-10 07:08] LABS: ALANINE AMINOTRANSFERASE 17 Units/L (12-78); ALBUMIN 2.9 g/dL (3.4-5.0); ALKALINE PHOSPHATASE 84 Units/L (46-116); ASPARTATE AMINO TRANSFERASE 18 Units/L (15-37); BLOOD UREA NITROGEN 8 mg/dL (7-18); CALCIUM 8.7 mg/dL (8.5-10.1); CARBON DIOXIDE 23.4 mmol/L (21-32); CHLORIDE 103 mmol/L (98-107); COR CA(FOR HYPOALB) 9.6 mg/dL (8.5-10.1); CREATININE 0.66 mg/dL (0.55-1.02); SODIUM 138 mmol/L (136-145); TOTAL PROTEIN 6.6 g/dL (6.4-8.2); eGFR NON BLACK RACES > 60 (>60)
[2021-08-10] MEDS ORDERED: ZESTRIL TAB 20 MG ONE ×2 (08:51→20:03)
[2021-08-10] MEDS: PROTONIX INJ 40 MG VIAL IVP SCH ×2 (08:56→21:57)
[2021-08-10] MEDS: LOPRESSOR TAB 50 MG PO SCH ×2 (08:56→21:57)
[2021-08-10] MEDS: ZESTRIL TAB 20 MG PO SCH ×2 (08:56→21:57)
[2021-08-10] MEDS ORDERED: NORMODYNE INJ 20 MG VIAL IVP PRN (10:00)
--- NOTE | 2021-08-10 10:13 | DR.PROGNOT ---
Hospital Progress Notes - Progress Note for Day of: Progress Note Date: 08/10/21 - Chief Complaint Chief Complaint: s/p EGD , extraction of obstructing food bolus . tolerating liquid diet well . no chest pain , no SOB . K 2.9 Na 138 . - Past Medical Family Social History Past Med/Fam/Surg Hx: No changes since H&P Allergies: Allergies No Known Drug Allergies Allergy (Verified 05/17/21 14:29) - Review Of Systems ROS: No change since H&P - Vital Signs Vital Signs: Temperature 99.2 F Pulse Rate [Left Brachial] 78 Pulse Rate 91 Respiratory Rate 18 Blood Pressure [Right Arm] 144/86 Blood Pressure [Left Arm] 163/87 Blood Pressure [Standing] 106/71 Blood Pressure [Sitting] 110/70 Blood Pressure [Lying] 120/78 Blood Pressure 180/98 O2 Sat by Pulse Oximetry 99 - Physical Exam Oriented: Normal, Time, Person, Place Eyes: Normal Ear: Normal Nose: Normal Throat: Red Respiratory: Normal Cardiovascular: Normal : Normal GI:Auscultation: Normal GI:Palpation: Normal GI: Tenderness: Normal (soft, flat abdomen , non tender .. BS+) Skin: Normal Musculoskeletal: Back:Lumbar, Tender Psychiatric: Normal Mood Description: Calm Affect: Normal Speech Pattern: Clear, Appropriate - Laboratory and Diagnostics Result Diagrams: 08/10/21 05:49 08/10/21 05:49 Labs: Laboratory WBC 8.3 X10^3/uL (3.6-10.0) 08/10/21 05:49 RBC 4.00 X10^6/uL (3.5-5.4) 08/10/21 05:49 Hgb 12.8 g/dL (12.0-16.0) 08/10/21 05:49 Hct 36.2 % (36.0-47.0) 08/10/21 05:49 MCV 90.4 fL (80.0-100.0) 08/10/21 05:49 MCH 31.9 pg (27.0-34.0) 08/10/21 05:49 MCHC 35.2 g/dL (33.0-35.0) H 08/10/21 05:49 RDW 12.2 % (11.6-16.5) 08/10/21 05:49 Plt Count 263 X10^3/uL (150.0-450.0) 08/10/21 05:49 MPV 7.6 fL (7.4-11.0) 08/10/21 05:49 Neut % (Auto) 58.3 % (42.0-75.0) 08/10/21 05:49 Lymph % (Auto) 29.6 % (21.0-51.0) 08/10/21 05:49 [place] % (Auto) 9.7 % (0.0-13.0) 08/10/21 05:49 Eos % (Auto) 1.9 % (0.9-2.9) 08/10/21 05:49 Baso % (Auto) 0.5 % (0.2-1.0) 08/10/21 05:49 Neut # (Auto) 4.8 x10^3/uL (2.2-4.8) 08/10/21 05:49 Lymph # (Auto) 2.5 X10^3/uL (1.3-2.9) 08/10/21 05:49 [place] # (Auto) 0.8 x10^3/uL (0.3-0.8) 08/10/21 05:49 Eos # (Auto) 0.2 x10^3/uL (0.0-0.2) 08/10/21 05:49 Baso # (Auto) 0.0 X10^3/uL (0.0-0.1) 08/10/21 05:49 Absolute Nucleated RBC 0.1 /100WBC 08/10/21 05:49 Sodium 138 mmol/L (136-145) 08/10/21 05:49 Corrected Sodium TNP 08/10/21 05:49 Potassium 2.9 mmol/L (3.5-5.1) L* 08/10/21 05:49 Chloride 103 mmol/L (98-107) 08/10/21 05:49 Carbon Dioxide 23.4 mmol/L (21-32) 08/10/21 05:49 BUN 8 mg/dL (7-18) 08/10/21 05:49 Creatinine 0.66 mg/dL (0.55-1.02) 08/10/21 05:49 Est GFR (MDRD) Af Amer > 60 (>60) 08/10/21 05:49 Est GFR (MDRD) Non-Af > 60 (>60) 08/10/21 05:49 Glucose 83 mg/dL (65-99) 08/10/21 05:49 Calcium 8.7 mg/dL (8.5-10.1) 08/10/21 05:49 Corrected Calcium 9.6 mg/dL (8.5-10.1) 08/10/21 05:49 Magnesium 2.5 mg/dL (1.7-2.9) 08/08/21 15:40 Total Bilirubin 1.10 mg/dL (0.2-1.0) H 08/10/21 05:49 AST 18 Units/L (15-37) 08/10/21 05:49 ALT 17 Units/L (12-78) 08/10/21 05:49 Alkaline Phosphatase 84 Units/L (46-116) 08/10/21 05:49 Creatine Kinase 70 Units/L (26-192) 08/09/21 11:34 CK-MB (CK-2) < 1.0 ng/mL (0-4.0) 08/09/21 11:34 CK/CKMB % Calc 1.4 % (<4) 08/09/21 11:34 Troponin I < 0.02 ng/mL (0-1.5) 08/09/21 11:34 Total Protein 6.6 g/dL (6.4-8.2) 08/10/21 05:49 Albumin 2.9 g/dL (3.4-5.0) L 08/10/21 05:49 Globulin 3.7 g/dL (2.5-4.5) 08/10/21 05:49 Albumin/Globulin Ratio 0.8 Ratio (1.1-2.1) L 08/10/21 05:49 Amylase 92 Units/L (25-115) 08/08/21 15:40 Lipase 84 Units/L (73-393) 08/08/21 15:40 Specimen Type Cancelled 08/08/21 Unknown Urine Color Cancelled 08/08/21 Unknown Urine Appearance Cancelled 08/08/21 Unknown Urine pH Cancelled 08/08/21 Unknown Ur Specific [place] Cancelled 08/08/21 Unknown Urine Protein Cancelled 08/08/21 Unknown Urine Glucose (UA) Cancelled 08/08/21 Unknown Urine Ketones Cancelled 08/08/21 Unknown Urine Occult Blood Cancelled 08/08/21 Unknown Urine Nitrite Cancelled 08/08/21 Unknown Urine Bilirubin Cancelled 08/08/21 Unknown Urine Urobilinogen Cancelled 08/08/21 Unknown Ur Leukocyte Esterase Cancelled 08/08/21 Unknown Urine RBC 0-2 /HPF (0-3) 08/08/21 19:34 Urine WBC 0-2 /HPF (0-5) 08/08/21 19:34 Ur Squamous Epith Cells Few /HPF (NEGATIVE) 08/08/21 19:34 Urine Bacteria Trace /HPF (NEGATIVE) 08/08/21 19:34 Hyaline Casts Few /LPF (NEGATIVE) 08/08/21 19:34 Urine Mucus Few /HPF (NEGATIVE) 08/08/21 19:34 Ur Culture Indicated? No/not indicated 08/08/21 19:34 SARS CoV-2 RNA Rapid CAROLE Negative (NEGATIVE) 08/08/21 23:52 - Assessment and Plan 2: s/p EGD , extraction of obstructing food bolus . esophagitis with benign lower esophageal stricture . HTN and hypokalemia . to advance diet to soft , small meals . f/u in one week .. - Problem Patient Problems: Patient Problems Nausea & vomiting (Resolved) R11.2 Hypertensive urgency (Acute) I16.0 Foreign body (Acute) Dysphagia (Acute) R13.10
[2021-08-10 16:22] LABS: BASOPHILS # (AUTO) 0.1 X10^3/uL (0.0-0.1); BASOPHILS % (AUTO) 0.9 % (0.2-1.0); EOSINOPHILS # (AUTO) 0.2 x10^3/uL (0.0-0.2); EOSINOPHILS % (AUTO) 2.9 % (0.9-2.9); HEMATOCRIT 35.9 % (36.0-47.0); HEMOGLOBIN 12.7 g/dL (12.0-16.0); LYMPHOCYTES # (AUTO) 2.6 X10^3/uL (1.3-2.9); LYMPHOCYTES % (AUTO) 35.7 % (21.0-51.0); MEAN CORPUSCULAR HEMOGLOBIN 31.7 pg (27.0-34.0); MEAN CORPUSCULAR HGB CONC 35.3 g/dL (33.0-35.0); MEAN CORPUSCULAR VOLUME 89.8 fL (80.0-100.0); MEAN PLATELET VOLUME 7.2 fL (7.4-11.0); MONOCYTES # (AUTO) 0.8 x10^3/uL (0.3-0.8); MONOCYTES % (AUTO) 11.5 % (0.0-13.0); NEUTROPHILS # (AUTO) 3.5 x10^3/uL (2.2-4.8); PLATELET COUNT 254 X10^3/uL (150.0-450.0); RED CELL DISTRIBUTION WIDTH 12.5 % (11.6-16.5); WHITE BLOOD COUNT 7.2 X10^3/uL (3.6-10.0)
[2021-08-10 16:34] LABS: ALANINE AMINOTRANSFERASE 16 Units/L (12-78); ALBUMIN 2.7 g/dL (3.4-5.0); ALKALINE PHOSPHATASE 82 Units/L (46-116); ASPARTATE AMINO TRANSFERASE 17 Units/L (15-37); BLOOD UREA NITROGEN 5 mg/dL (7-18); CALCIUM 8.3 mg/dL (8.5-10.1); CARBON DIOXIDE 22.8 mmol/L (21-32); CHLORIDE 104 mmol/L (98-107); COR CA(FOR HYPOALB) 9.3 mg/dL (8.5-10.1); CREATININE 0.66 mg/dL (0.55-1.02); SODIUM 137 mmol/L (136-145); TOTAL PROTEIN 6.4 g/dL (6.4-8.2); eGFR NON BLACK RACES > 60 (>60)
--- NOTE | 2021-08-10 17:43 | PCM.PROG ---
Progress Note Progress Note for Day of Date of Exam: 08/10/21 Subjective Subjective: Patient is a 61 year old AAF who was admitted due to dysphagia, possible foreign body in throat (meat), and hypertensive urgency. Home meds resumed today. Tentatively planned EGD today due to dysphagia. No major changes or concerns at present. Patients BP is not controlled at this time. Will increase Metoprolol to 100 mg and will add Chlorthalidone 25mg qday. Past Medical Family Social History Past Med/Fam/Surg Hx: No changes since H&P Allergies: Allergies No Known Drug Allergies Allergy (Verified 05/17/21 14:29) Review of Systems ROS: No change since H&P Vital Signs and I&O's Vital Signs: Temperature 98.7 F Pulse Rate [Left Brachial] 76 Pulse Rate 91 Respiratory Rate 20 Blood Pressure [Right Arm] 144/86 Blood Pressure [Left Arm] 193/101 Blood Pressure [Standing] 106/71 Blood Pressure [Sitting] 110/70 Blood Pressure [Lying] 120/78 Blood Pressure 180/98 O2 Sat by Pulse Oximetry 98 Intake and Output: Intake & Output 08/08/21 08/09/21 08/10/21 08/11/21 11:59 11:59 11:59 11:59 Intake Total 1017 / 1017 2419 / 2419 880 / 880 Balance 1017 / 1017 2419 / 2419 880 / 880 Physical Exam Oriented: Normal, Time, Person and Place Eyes: Normal Ear: Normal Nose: Normal Throat: Red Respiratory: Normal Cardiovascular: Normal : Normal Auscultation: Bowel Sounds: Normal Tenderness: Normal (soft, flat abdomen , non tender .. BS+) Skin: Normal Musculoskeletal: Back:Lumbar and Tender Psychiatric: Normal Mood Description: Calm Affect: Normal Speech Pattern: Clear and Appropriate Laboratory and Diagnostics Result Diagrams: 08/10/21 16:14 08/10/21 16:14 Labs: Laboratory WBC 7.2 X10^3/uL (3.6-10.0) 08/10/21 16:14 RBC 4.00 X10^6/uL (3.5-5.4) 08/10/21 16:14 Hgb 12.7 g/dL (12.0-16.0) 08/10/21 16:14 Hct 35.9 % (36.0-47.0) L 08/10/21 16:14 MCV 89.8 fL (80.0-100.0) 08/10/21 16:14 MCH 31.7 pg (27.0-34.0) 08/10/21 16:14 MCHC 35.3 g/dL (33.0-35.0) H 08/10/21 16:14 RDW 12.5 % (11.6-16.5) 08/10/21 16:14 Plt Count 254 X10^3/uL (150.0-450.0) 08/10/21 16:14 MPV 7.2 fL (7.4-11.0) L 08/10/21 16:14 Neut % (Auto) 49.0 % (42.0-75.0) 08/10/21 16:14 Lymph % (Auto) 35.7 % (21.0-51.0) 08/10/21 16:14 [place] % (Auto) 11.5 % (0.0-13.0) 08/10/21 16:14 Eos % (Auto) 2.9 % (0.9-2.9) 08/10/21 16:14 Baso % (Auto) 0.9 % (0.2-1.0) 08/10/21 16:14 Neut # (Auto) 3.5 x10^3/uL (2.2-4.8) 08/10/21 16:14 Lymph # (Auto) 2.6 X10^3/uL (1.3-2.9) 08/10/21 16:14 [place] # (Auto) 0.8 x10^3/uL (0.3-0.8) 08/10/21 16:14 Eos # (Auto) 0.2 x10^3/uL (0.0-0.2) 08/10/21 16:14 Baso # (Auto) 0.1 X10^3/uL (0.0-0.1) 08/10/21 16:14 Absolute Nucleated RBC 0.2 /100WBC 08/10/21 16:14 Sodium 137 mmol/L (136-145) 08/10/21 16:14 Corrected Sodium TNP 08/10/21 16:14 Potassium 3.5 mmol/L (3.5-5.1) 08/10/21 16:14 Chloride 104 mmol/L (98-107) 08/10/21 16:14 Carbon Dioxide 22.8 mmol/L (21-32) 08/10/21 16:14 BUN 5 mg/dL (7-18) L 08/10/21 16:14 Creatinine 0.66 mg/dL (0.55-1.02) 08/10/21 16:14 Est GFR (MDRD) Af Amer > 60 (>60) 08/10/21 16:14 Est GFR (MDRD) Non-Af > 60 (>60) 08/10/21 16:14 Glucose 95 mg/dL (65-99) 08/10/21 16:14 Calcium 8.3 mg/dL (8.5-10.1) L 08/10/21 16:14 Corrected Calcium 9.3 mg/dL (8.5-10.1) 08/10/21 16:14 Magnesium 2.5 mg/dL (1.7-2.9) 08/08/21 15:40 Total Bilirubin 0.70 mg/dL (0.2-1.0) 08/10/21 16:14 AST 17 Units/L (15-37) 08/10/21 16:14 ALT 16 Units/L (12-78) 08/10/21 16:14 Alkaline Phosphatase 82 Units/L (46-116) 08/10/21 16:14 Creatine Kinase 70 Units/L (26-192) 08/09/21 11:34 CK-MB (CK-2) < 1.0 ng/mL (0-4.0) 08/09/21 11:34 CK/CKMB % Calc 1.4 % (<4) 08/09/21 11:34 Troponin I < 0.02 ng/mL (0-1.5) 08/09/21 11:34 Total Protein 6.4 g/dL (6.4-8.2) 08/10/21 16:14 Albumin 2.7 g/dL (3.4-5.0) L 08/10/21 16:14 Globulin 3.7 g/dL (2.5-4.5) 08/10/21 16:14 Albumin/Globulin Ratio 0.7 Ratio (1.1-2.1) L 08/10/21 16:14 Amylase 92 Units/L (25-115) 08/08/21 15:40 Lipase 84 Units/L (73-393) 08/08/21 15:40 Specimen Type Cancelled 08/08/21 Unknown Urine Color Cancelled 08/08/21 Unknown Urine Appearance Cancelled 08/08/21 Unknown Urine pH Cancelled 08/08/21 Unknown Ur Specific [place] Cancelled 08/08/21 Unknown Urine Protein Cancelled 08/08/21 Unknown Urine Glucose (UA) Cancelled 08/08/21 Unknown Urine Ketones Cancelled 08/08/21 Unknown Urine Occult Blood Cancelled 08/08/21 Unknown Urine Nitrite Cancelled 08/08/21 Unknown Urine Bilirubin Cancelled 08/08/21 Unknown Urine Urobilinogen Cancelled 08/08/21 Unknown Ur Leukocyte Esterase Cancelled 08/08/21 Unknown Urine RBC 0-2 /HPF (0-3) 08/08/21 19:34 Urine WBC 0-2 /HPF (0-5) 08/08/21 19:34 Ur Squamous Epith Cells Few /HPF (NEGATIVE) 08/08/21 19:34 Urine Bacteria Trace /HPF (NEGATIVE) 08/08/21 19:34 Hyaline Casts Few /LPF (NEGATIVE) 08/08/21 19:34 Urine Mucus Few /HPF (NEGATIVE) 08/08/21 19:34 Ur Culture Indicated? No/not indicated 08/08/21 19:34 SARS CoV-2 RNA Rapid CAROLE Negative (NEGATIVE) 08/08/21 23:52 Radiology Reviewed: Yes Plan (1) Uncontrolled hypertension: Status: Acute Plan: Add Chlorthalidone and increase Metoprolol to 100 mg. (2) Nausea & vomiting: Status: Resolved Plan: Nausea control (3) Hypertensive urgency: Status: Acute Plan: Verify home meds Clonidine prn (4) Dysphagia: Status: Acute Plan: Consult GI Plan for EGD NPO except meds See EMR (5) Foreign body: Status: Acute Plan: R/O foreign body in throat
[2021-08-10] MEDS ORDERED: CHLORTHALIDONE PO SCH (18:00)
[2021-08-11] MEDS ORDERED: NS 1/2 1,000 ML IV 1,000 ML IV ONE (04:20)
[2021-08-11] MEDS: CATAPRES TAB 0.1 MG PO PRN (04:23)
[2021-08-11] MEDS: VASOTEC INJ 2.5 MG VIAL IVP SCH ×2 (04:24→10:10)
[2021-08-11] MEDS: NS 1/2 1,000 ML IV 1,000 ML IV SCH ×2 (04:24→10:11)
[2021-08-11] MEDS: NEURONTIN CAP 100 MG PO SCH ×2 (06:37→13:15)
[2021-08-11] MEDS: APRESOLINE TAB 25 MG PO SCH ×2 (06:37→13:15)
[2021-08-11] MEDS ORDERED: CHLORTHALIDONE PO SCH (09:00)
[2021-08-11] MEDS ORDERED: ZESTRIL TAB 20 MG ONE (10:06)
[2021-08-11] MEDS: ZESTRIL TAB 20 MG PO SCH (10:10)
[2021-08-11] MEDS: LOPRESSOR TAB 50 MG PO SCH (10:10)
[2021-08-11] MEDS: PROTONIX INJ 40 MG VIAL IVP SCH (10:11)
[2021-08-11 11:51] VITALS: BP 174/89
--- NOTE | 2021-08-11 19:09 | PCM.DCPLAN ---
DISCHARGE SUMMARY Admission Date Date of Admission: 08/08/21 Discharge Date Discharge Date: 08/11/21 Admission Diagnoses (1) Uncontrolled hypertension: Status: Acute (2) Nausea & vomiting: Status: Resolved (3) Hypertensive urgency: Status: Acute (4) Dysphagia: Status: Acute (5) Foreign body: Status: Acute Discharge Diagnoses Discharge Diagnosis: 1. Malignant HTN 2. Foreign body in esophagus removed 3. Dysphagia Discharge Medications Discharge Medications: Home Medication List cyclobenzaprine 10 mg PO TID PRN 08/08/21 [History] gabapentin 100 mg PO TID 08/08/21 [History] lisinopril 20 mg PO BID 08/08/21 [History] chlorthalidone 25 mg PO DAILY 30 Days #30 tab 08/11/21 [Rx] hydralazine 50 mg PO QID 30 Days #120 tab 08/11/21 [Rx] metoprolol tartrate 100 mg PO Q12H 30 Days #60 tab 08/11/21 [Rx] pantoprazole [Protonix] 40 mg PO BID 30 Days #60 tab 08/11/21 [Rx] Prescriptions: chlorthalidone HOSEA CLINE hydralazine HOSEA CLINE metoprolol tartrate SON,HOSEA pantoprazole [Protonix] [facility] Course Vital Signs: Temperature 98.7 F Pulse Rate [Left Brachial] 72 Pulse Rate 91 Respiratory Rate 18 Blood Pressure [Right Arm] 144/86 Blood Pressure [Left Arm] 174/89 Blood Pressure [Standing] 106/71 Blood Pressure [Sitting] 110/70 Blood Pressure [Lying] 120/78 Blood Pressure 180/98 O2 Sat by Pulse Oximetry 99 Latest Lab Results: Laboratory Last Values WBC 7.2 X10^3/uL (3.6-10.0) 08/10/21 16:14 RBC 4.00 X10^6/uL (3.5-5.4) 08/10/21 16:14 Hgb 12.7 g/dL (12.0-16.0) 08/10/21 16:14 Hct 35.9 % (36.0-47.0) L 08/10/21 16:14 MCV 89.8 fL (80.0-100.0) 08/10/21 16:14 MCH 31.7 pg (27.0-34.0) 08/10/21 16:14 MCHC 35.3 g/dL (33.0-35.0) H 08/10/21 16:14 RDW 12.5 % (11.6-16.5) 08/10/21 16:14 Plt Count 254 X10^3/uL (150.0-450.0) 08/10/21 16:14 MPV 7.2 fL (7.4-11.0) L 08/10/21 16:14 Neut % (Auto) 49.0 % (42.0-75.0) 08/10/21 16:14 Lymph % (Auto) 35.7 % (21.0-51.0) 08/10/21 16:14 [place] % (Auto) 11.5 % (0.0-13.0) 08/10/21 16:14 Eos % (Auto) 2.9 % (0.9-2.9) 08/10/21 16:14 Baso % (Auto) 0.9 % (0.2-1.0) 08/10/21 16:14 Neut # (Auto) 3.5 x10^3/uL (2.2-4.8) 08/10/21 16:14 Lymph # (Auto) 2.6 X10^3/uL (1.3-2.9) 08/10/21 16:14 [place] # (Auto) 0.8 x10^3/uL (0.3-0.8) 08/10/21 16:14 Eos # (Auto) 0.2 x10^3/uL (0.0-0.2) 08/10/21 16:14 Baso # (Auto) 0.1 X10^3/uL (0.0-0.1) 08/10/21 16:14 Absolute Nucleated RBC 0.2 /100WBC 08/10/21 16:14 Sodium 137 mmol/L (136-145) 08/10/21 16:14 Corrected Sodium TNP 08/10/21 16:14 Potassium 3.5 mmol/L (3.5-5.1) 08/10/21 16:14 Chloride 104 mmol/L (98-107) 08/10/21 16:14 Carbon Dioxide 22.8 mmol/L (21-32) 08/10/21 16:14 BUN 5 mg/dL (7-18) L 08/10/21 16:14 Creatinine 0.66 mg/dL (0.55-1.02) 08/10/21 16:14 Est GFR (MDRD) Af Amer > 60 (>60) 08/10/21 16:14 Est GFR (MDRD) Non-Af > 60 (>60) 08/10/21 16:14 Glucose 95 mg/dL (65-99) 08/10/21 16:14 Calcium 8.3 mg/dL (8.5-10.1) L 08/10/21 16:14 Corrected Calcium 9.3 mg/dL (8.5-10.1) 08/10/21 16:14 Magnesium 2.5 mg/dL (1.7-2.9) 08/08/21 15:40 Total Bilirubin 0.70 mg/dL (0.2-1.0) 08/10/21 16:14 AST 17 Units/L (15-37) 08/10/21 16:14 ALT 16 Units/L (12-78) 08/10/21 16:14 Alkaline Phosphatase 82 Units/L (46-116) 08/10/21 16:14 Creatine Kinase 70 Units/L (26-192) 08/09/21 11:34 CK-MB (CK-2) < 1.0 ng/mL (0-4.0) 08/09/21 11:34 CK/CKMB % Calc 1.4 % (<4) 08/09/21 11:34 Troponin I < 0.02 ng/mL (0-1.5) 08/09/21 11:34 Total Protein 6.4 g/dL (6.4-8.2) 08/10/21 16:14 Albumin 2.7 g/dL (3.4-5.0) L 08/10/21 16:14 Globulin 3.7 g/dL (2.5-4.5) 08/10/21 16:14 Albumin/Globulin Ratio 0.7 Ratio (1.1-2.1) L 08/10/21 16:14 Amylase 92 Units/L (25-115) 08/08/21 15:40 Lipase 84 Units/L (73-393) 08/08/21 15:40 Specimen Type Cancelled 08/08/21 Unknown Urine Color Cancelled 08/08/21 Unknown Urine Appearance Cancelled 08/08/21 Unknown Urine pH Cancelled 08/08/21 Unknown Ur Specific [place] Cancelled 08/08/21 Unknown Urine Protein Cancelled 08/08/21 Unknown Urine Glucose (UA) Cancelled 08/08/21 Unknown Urine Ketones Cancelled 08/08/21 Unknown Urine Occult Blood Cancelled 08/08/21 Unknown Urine Nitrite Cancelled 08/08/21 Unknown Urine Bilirubin Cancelled 08/08/21 Unknown Urine Urobilinogen Cancelled 08/08/21 Unknown Ur Leukocyte Esterase Cancelled 08/08/21 Unknown Urine RBC 0-2 /HPF (0-3) 08/08/21 19:34 Urine WBC 0-2 /HPF (0-5) 08/08/21 19:34 Ur Squamous Epith Cells Few /HPF (NEGATIVE) 08/08/21 19:34 Urine Bacteria Trace /HPF (NEGATIVE) 08/08/21 19:34 Hyaline Casts Few /LPF (NEGATIVE) 08/08/21 19:34 Urine Mucus Few /HPF (NEGATIVE) 08/08/21 19:34 Ur Culture Indicated? No/not indicated 08/08/21 19:34 SARS CoV-2 RNA Rapid CAROLE Negative (NEGATIVE) 08/08/21 23:52 Hospital Course: The patient did not have any serious problems during her hospital stay. Her BP continued to run high over the first 3 hospital days but is much improved today. 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 Instructions Instructions: How to Take Your Blood Pressure Nausea and Vomiting, Adult Preventing Hypertension Back Pain, Adult Upper Endoscopy, Care After Nausea and Vomiting, Adult, [id number] How to Take Your Blood Pressure, [id number] Managing Your Hypertension Forms: Excuse From Work or School Precautions for COVID19 [facility] Social Distancing
== END 2021-08-11 13:37 | disposition home or self-care (01) ==
LOC: U 14:59 → ER 14:59 → U 23:58 → MED/SURG 08-09 15:29
PROVIDERS: ADMIT Surgery; ATTEND Internal Medicine
DX: E78.2 Mixed hyperlipidemia; K29.60 Other gastritis without bleeding; X58.XXXA Exposure to other specified factors, initial encounter; K22.2 Esophageal obstruction; E87.0 Hyperosmolality and hypernatremia; R94.31 Abnormal electrocardiogram [ECG] [EKG]; I16.0 Hypertensive urgency; R13.11 Dysphagia, oral phase; Z20.822 Contact with and (suspected) exposure to COVID-19; E87.6 Hypokalemia; K44.9 Diaphragmatic hernia without obstruction or gangrene; E86.0 Dehydration; T18.128A Food in esophagus causing other injury, initial encounter; I10 Essential (primary) hypertension

== ENCOUNTER 2022-03-13 14:47 | Inpatient (IN) ==
[2022-03-13] MEDS ORDERED: NS 1,000 ML IV 1,000 ML ONE (14:52)
[2022-03-13] MEDS ORDERED: NS 1,000 ML IV 1,000 ML IV ONE (14:56)
--- NOTE | 2022-03-13 15:02 | DR.NAUSEAF ---
HPI Time Seen Time Seen by Provider: 03/13/22 15:01 Primary Care Physician Primary Care Physician: Lan Complaints Chief Complaint Doctors Comments: 62 y/o female brought in via EMS for evaluation. Has been ill over the past 2 days. Having nausea, with frequent episodes of vomiting. Threw up all night. Having lower abdominal pain. Pain is sharp, does not radiate, worse with moving, nothing makes it better. Having general weakness. Denies any urinary issues. Also with back pain x 3-5 months. Has had a hysterectomy in the distant past. Chief Complaint:: Pt c/o nausea, vomiting, diarrhea and shaking x 1 week. She states this worsened yesterday. Pt also c/o back pain since a fall last month. COVID-19 Coronavirus risk:travel/contact w/high risk person: No Has patient experienced Coronavirus symptoms: Yes Coronavirus symptoms experienced: Fever Reviewed Nurses Notes Reviewed: Yes Source History Provided: Patient Mode of Arrival Mode of Arrival: Stretcher Timing Onset of Chief Complaint: 03/06/22 PMH PMH Past Medical History: Yes Past Medical History: Depression, Dyslipidemia and Hypertension Past Medical History Comment: TIA Past Surgical History: Yes Surgical History: Hysterectomy and Tonsillectomy Family History History of Family Medical Conditions: Yes Family Medical History: Cancer and Hypertension Social History Does patient currently use any type of tobacco product: No Have you used tobacco products in the last 12 months: No Type of Tobacco Use: None Alcohol Use: Occasionally Do you use any recreational Drugs:: No Lives With: Family Lives Where: Home Travel Risk Coronavirus risk:travel/contact w/high risk person: No Has patient experienced Coronavirus symptoms: Yes Coronavirus symptoms experienced: Fever Infectious screening In the last 2 months have you had wt loss of >10#?: NO Have you had fever, night sweats or hemotysis?: No Have you traveled outside the country in the last 6 months?: No Isolation: Droplet ROS Review of Systems Constitutional: Fever and Weakness Eyes: No Symptoms Reported ENTM: No Symptoms Reported Respiratoy: No Symptoms Reported Cardiovascular: No Symptoms Reported Gastrointestinal/Abdominal: Abdominal Pain, Nausea and Vomiting Genitourinary: No Symptoms Reported Neurological: Weakness Musculoskeletal: No Symptoms Reported Integumentary: No Symptoms Reported Psychiatric: No Symptoms Reported All Other Systems: Reviewed and Negative PE Vital Signs Vitals: Temperature 100.8 F Pulse Rate 119 Respiratory Rate 24 Blood Pressure [Right Arm] 144/86 Blood Pressure [Left Arm] 174/89 Blood Pressure [Standing] 106/71 Blood Pressure [Sitting] 110/70 Blood Pressure [Lying] 120/78 Blood Pressure 115/72 O2 Sat by Pulse Oximetry 100 General General Appearance: Alert, In No Apparent Distress and Anxious Head Head Exam: Normal Inspection Eyes Eye exam: PERRL and EOMI ENT ENT Exam: Mucous Membranes Moist Neck Neck Exam: Normal Inspection Respiratory Respiratory Exam: Normal Lung Sounds Bilat; negative Accessory Muscle Use or Respiratory Distress Cardiovascular Cardiovascular Exam: Regular Rate, Normal Rhythm, Tachycardia and Normal Heart Sounds Abdominal Exam Abdominal Exam: Normal Bowel Sounds, Soft and Tenderness (across the lower abdomen, worse LLQ, with some guarding, no rebound. ) Extremities Extremities Exam: Normal Inspection and Full ROM; negative Edema Back Back Exam: negative (R) CVA Tenderness or (L) CVA Tenderness Neurologic Neurological Exam: Alert, Oriented X3 and CN II-XII Intact; negative Motor Se nsory Deficit Psychiatric Psychiatric Exam: Normal Affect Skin Skin Exam: Warm and Dry COURSE Treatment Treatment: 62 y/o female brought in via EMS. + ill over the past week. Has been having nausea, vomiting, abdominal discomfort. + weakness, shaking. W/u initiated. Given IV fluids, IV zofran. 1804 - + electrolyte abnormalities, Na low at 129, K+ low at 2.6. Slight bump of livevr enzymes, AST 131, ALT 98. CT of the abdomen with perinephric stranding concerning for pyelonephritis. U/A with TNTC WBCs. Given IV rocephin. Recommend admission. 1813 - discussed with Dr Montenegro (attending MD, with Ms. Lomax. ROR Labs Reviewed Laboratory Results Reviewed?: Yes Result Diagrams: 03/13/22 15:12 03/13/22 15:12 Laboratory: WBC 8.5 X10^3/uL (3.6-10.0) 03/13/22 15:12 RBC 4.03 X10^6/uL (3.5-5.4) 03/13/22 15:12 Hgb 12.5 g/dL (12.0-16.0) 03/13/22 15:12 Hct 34.1 % (36.0-47.0) L 03/13/22 15:12 MCV 84.8 fL (80.0-100.0) 03/13/22 15:12 MCH 31.1 pg (27.0-34.0) 03/13/22 15:12 MCHC 36.7 g/dL (33.0-35.0) H 03/13/22 15:12 RDW 13.5 % (11.6-16.5) 03/13/22 15:12 Plt Count 106 X10^3/uL (150.0-450.0) L 03/13/22 15:12 Plt Count Comment Decreased (ADEQUATE) A 03/13/22 15:12 MPV 8.9 fL (7.4-11.0) 03/13/22 15:12 Neut % (Auto) 92.6 % (42.0-75.0) H 03/13/22 15:12 Lymph % (Auto) 2.0 % (21.0-51.0) L 03/13/22 15:12 [place] % (Auto) 5.0 % (0.0-13.0) 03/13/22 15:12 Eos % (Auto) 0.0 % (0.9-2.9) L 03/13/22 15:12 Baso % (Auto) 0.4 % (0.2-1.0) 03/13/22 15:12 Neut # (Auto) 7.9 x10^3/uL (2.2-4.8) H 03/13/22 15:12 Lymph # (Auto) 0.2 X10^3/uL (1.3-2.9) L 03/13/22 15:12 [place] # (Auto) 0.4 x10^3/uL (0.3-0.8) 03/13/22 15:12 Eos # (Auto) 0.0 x10^3/uL (0.0-0.2) 03/13/22 15:12 Baso # (Auto) 0.0 X10^3/uL (0.0-0.1) 03/13/22 15:12 Absolute Nucleated RBC 0.2 /100WBC 03/13/22 15:12 Total Counted 100 03/13/22 15:12 Neutrophils % (Manual) 89 % (39-76) H 03/13/22 15:12 Lymphocytes % (Manual) 11 % (13-43) L 03/13/22 15:12 Plt Morphology Comment Normal (NORMAL) 03/13/22 15:12 RBC Morphology Normal (NORMAL) 03/13/22 15:12 Sodium 129 mmol/L (136-145) L 03/13/22 15:12 Corrected Sodium 130 mmol/L (136-145) L 03/13/22 15:12 Potassium 2.6 mmol/L (3.5-5.1) L* 03/13/22 15:12 Chloride 92 mmol/L (98-107) L 03/13/22 15:12 Carbon Dioxide 19.4 mmol/L (21-32) L 03/13/22 15:12 BUN 22 mg/dL (7-18) H 03/13/22 15:12 Creatinine 1.97 mg/dL (0.55-1.02) H 03/13/22 15:12 Est GFR (MDRD) Af Amer 33 (>60) L 03/13/22 15:12 Est GFR (MDRD) Non-Af 27 (>60) L 03/13/22 15:12 Glucose 128 mg/dL (65-99) H 03/13/22 15:12 Calcium 9.6 mg/dL (8.5-10.1) 03/13/22 15:12 Corrected Calcium TNP 03/13/22 15:12 Total Bilirubin 1.70 mg/dL (0.2-1.0) H 03/13/22 15:12 AST 131 Units/L (15-37) H 03/13/22 15:12 ALT 98 Units/L (12-78) H 03/13/22 15:12 Alkaline Phosphatase 105 Units/L (46-116) 03/13/22 15:12 Creatine Kinase 56 Units/L (26-192) 03/13/22 15:12 Troponin I High Sens 14.5 ng/L (4.0-60.0) 03/13/22 15:12 Total Protein 9.0 g/dL (6.4-8.2) H 03/13/22 15:12 Albumin 3.7 g/dL (3.4-5.0) 03/13/22 15:12 Globulin 5.3 g/dL (2.5-4.5) H 03/13/22 15:12 Albumin/Globulin Ratio 0.7 Ratio (1.1-2.1) L 03/13/22 15:12 Lipase 235 Units/L (73-393) 03/13/22 15:12 TSH 3rd Generation 2.845 uIU/mL (0.358-3.74) 03/13/22 15:12 Specimen Type Clean catch urine 03/13/22 17:22 Urine Color Yellow (YELLOW) 03/13/22 17: Urine Appearance Slightly hazy (CLEAR) 03/13/22 17: Urine pH 5.0 (5.0 - 8.0) 03/13/22 17:22 Ur Specific [place] 1.015 (1.000-1.030) 03/13/22 17: Urine Protein 3+ (NEGATIVE) 03/13/22 17: Urine Glucose (UA) Negative (NEGATIVE) 03/13/22 17: Urine Ketones 1+ (NEGATIVE) 03/13/22 17: Urine Blood 1+ (NEGATIVE) 03/13/22 17: Urine Nitrite Positive (NEGATIVE) 03/13/22 17: Urine Bilirubin Negative (NEGATIVE) 03/13/22 17:22 Urine Urobilinogen Normal (NORMAL) 03/13/22 17:22 Ur Leukocyte Esterase 2+ (NEGATIVE) 03/13/22 17:22 Urine RBC 3-5 /HPF (0-3) A 03/13/22 17:22 Urine WBC Tntc /HPF (0-5) A 03/13/22 17:22 Ur Squamous Epith Cells Few /HPF (NEGATIVE) 03/13/22 17:22 Urine Bacteria 1+ /HPF (NEGATIVE) 03/13/22 17:22 Ur Culture Indicated? Yes/culture set up 03/13/22 17:22 SARS-CoV-2 (PCR) Negative (NEGATIVE) 03/13/22 15:04 Influenza Type A (PCR) Negative (NEGATIVE) 03/13/22 15:04 Influenza Type B (PCR) Negative (NEGATIVE) 03/13/22 15:04 RSV (PCR) Negative (NEGATIVE) 03/13/22 15:04 Low Na 129, K+ 2.6, U/A with TNTC WBCs. XRAY XRAY Interpreted by: Radiologist X-ray Results: CT of abd with bilateral perinephric stranding c/w pyelonephritis. EKG Rate: 139 [place]: LAD Rhythm: ST Block: None Hypertrophy: LAE and LVH ST: Nonsp Opioid Opioid Risk Tool Age (Reece box if 16-45): No History of Preadolescent Sexual Abuse: No Total: 0 Total Score Risk Category: Low Risk Copyright: Jaciel ALDRIDGE predicting aberrant behaviors Discharge Plan Diagnosis Discharge Problem: Pyelonephritis, Acute hypokalemia, Acute hyponatremia, Vomiting Discharge Plan Patient Disposition: ADMITTED INPATIENT Condition: Stable Orders to Discharge Patient Discharge Orders: Transfer (Routine); Ordered 03/13/22 Ordered By: Jesus Hernandez
[2022-03-13] MEDS ORDERED: ZOFRAN INJ 4 MG VIAL IVP ONE (15:03)
[2022-03-13] MEDS ORDERED: ZOFRAN INJ 4 MG VIAL ONE (15:15)
[2022-03-13 15:47] LABS: HEMOGLOBIN 12.5 g/dL (12.0-16.0); LYMPHOCYTES # (AUTO) 0.2 X10^3/uL (1.3-2.9); NEUTROPHILS # (AUTO) 7.9 x10^3/uL (2.2-4.8)
[2022-03-13 15:57] LABS: BASOPHILS % (AUTO) 0.4 % (0.2-1.0); HEMATOCRIT 34.1 % (36.0-47.0); MEAN CORPUSCULAR HEMOGLOBIN 31.1 pg (27.0-34.0); MEAN CORPUSCULAR HGB CONC 36.7 g/dL (33.0-35.0); MEAN CORPUSCULAR VOLUME 84.8 fL (80.0-100.0); MEAN PLATELET VOLUME 8.9 fL (7.4-11.0); MONOCYTES # (AUTO) 0.4 x10^3/uL (0.3-0.8); NEUTROPHILS % (AUTO) 92.6 % (42.0-75.0); RED BLOOD COUNT 4.03 X10^6/uL (3.5-5.4); RED CELL DISTRIBUTION WIDTH 13.5 % (11.6-16.5); WHITE BLOOD COUNT 8.5 X10^3/uL (3.6-10.0)
[2022-03-13 16:00] LABS: ALANINE AMINOTRANSFERASE 98 Units/L (12-78); ALBUMIN 3.7 g/dL (3.4-5.0); ALKALINE PHOSPHATASE 105 Units/L (46-116); ASPARTATE AMINO TRANSFERASE 131 Units/L (15-37); BLOOD UREA NITROGEN 22 mg/dL (7-18); CALCIUM 9.6 mg/dL (8.5-10.1); CARBON DIOXIDE 19.4 mmol/L (21-32); CHLORIDE 92 mmol/L (98-107); COR NA(FOR HYPERGLY) 130 mmol/L (136-145); CREATINE KINASE 56 Units/L (26-192); CREATININE 1.97 mg/dL (0.55-1.02); LIPASE 235 Units/L (73-393); SODIUM 129 mmol/L (136-145); TSH (3RD GENERATION) 2.845 uIU/mL (0.358-3.74); eGFR NON BLACK RACES 27 (>60)
[2022-03-13] MEDS ORDERED: TYLENOL 500 MG TAB EXTRA STRENGTH PO ONE ×2 (16:04→16:12)
[2022-03-13 16:12] LABS: PLATELET MORPHOLOGY COMMENT NORMAL (NORMAL)
--- NOTE | 2022-03-13 16:36 | CT ---
EXAM: CT ABDOMEN AND PELVIS WITHOUT INTRAVENOUS CONTRASTHISTORY: Nausea, vomiting, diarrhea, and shaking x1 week, with worsening symptoms yesterday. Back pain since fall injury 1 month ago.TECHNIQUE: Spiral axial CT images are obtained through the abdomen and pelvis without the administration of intravenous contrast. Additional coronal and sagittal reformatted images are reconstructed.DOSIMETRY: Total DLP 390 mGycm; CTDI 8.3 mGyCOMPARISON: CT abdomen pelvis dated August 08, 2021.FINDINGS:GASTROINTESTINAL TRACT: There is no evidence for bowel herniation, bowel obstruction, colitis or diverticulitis. A normal-appearing appendix is seen.GENITOURINARY SYSTEM: Nonspecific mild bilateral perinephric streaky changes (right greater than left, with continuous streaky interstitial fluid tracking along the right retroperitoneum anterior to the right psoas muscle), etiology indeterminate; DDx includes pyelonephritis in the appropriate clinical setting. Consider follow-up postcontrast CT to rule out pyelonephritis if UTI is clinically suspected. The kidneys are otherwise unremarkable. There is no ureteral calculus or stigmata of obstructive uropathy. The urinary bladder is grossly unremarkable for a non-dedicated exam.CT ABDOMEN: Diffuse hepatic steatosis with hepatomegaly (right lobe measures 19.3 cm CC); rule out nonalcoholic steatosis hepatitis; no focal hepatic mass seen. Dilated gallbladder; nonspecific finding which may represent sequela of NPO status; consider follow-up evaluation with ultrasound and/or HIDA scan to rule out acute gallbladder disease if clinically warranted. The spleen, pancreas, adrenal glands, aorta, and inferior vena cava are within normal limits for a noncontrast CT scan. There is no intra-abdominal or retroperitoneal lymphadenopathy, free fluid, or free air seen. No abdominal herniation is noted.CT PELVIS: Status post hysterectomy. No pelvic sidewall or inguinal lymphadenopathy is seen. No inguinal herniation is noted. No free fluid or free air is seen.BONES AND JOINTS: The visualized bony structures are within normal limits.LUNG BASES: The lung bases are clear.IMPRESSION:1. Interval appearance of nonspecific bilateral perinephric streaky changes (right greater than left, with continuous streaky interstitial fluid tracking along the right retroperitoneum anterior to the right psoas muscle), etiology indeterminate; DDx includes pyelonephritis in the appropriate clinical setting. Consider follow-up postcontrast CT to rule out pyelonephritis if UTI is clinically suspected.2. No evidence for renal stone disease or obstructive uropathy.3. Diffuse hepatic steatosis with hepatomegaly (right lobe measures 19.3 cm CC; previously 17 cm); rule out nonalcoholic steatosis hepatitis; no focal hepatic mass seen.4. Dilated gallbladder; nonspecific finding which may represent sequela of NPO status; consider follow-up evaluation with ultrasound and/or HIDA scan to rule out acute gallbladder disease if clinically warranted.5. No evidence for acute appendicitis, bowel herniation/obstruction, colitis or diverticulitis seen.6. No drainable fluid collection/abscess, free fluid, free air, mass lesions, or lymphadenopathy seen.Electronically signed by: Nancy Steve (Mar 13, 2022 16:35:10)
[2022-03-13] MEDS ORDERED: ROCEPHIN 1 GRAM IV PREMIX 1 G/50 ML IV.SOLN. IV ONE (17:21)
[2022-03-13] MEDS ORDERED: ROCEPHIN VIAL 1 GRAM ONE (17:23)
[2022-03-13] MEDS ORDERED: NS 50 ML IV 50 ML IV ONE (17:23)
[2022-03-13 17:29] LABS: BILIRUBIN,URINE NEGATIVE (NEGATIVE); BLOOD/HEMOGLOBIN,URINE 1+ (NEGATIVE); GLUCOSE, URINE NEGATIVE (NEGATIVE); KETONES,URINE 1+ (NEGATIVE); LEUKOCYTE ESTERASE ,URINE 2+ (NEGATIVE); NITRITES,URINE POSITIVE (NEGATIVE); PROTEIN,URINE 3+ (NEGATIVE); UROBILINOGEN,URINE NORMAL (NORMAL)
[2022-03-13 17:46] LABS: APPEARANCE,URINE SLIGHTLY HAZY (CLEAR); COLOR,URINE YELLOW (YELLOW)
[2022-03-13 17:47] LABS: BACTERIA,URINE 1+ /HPF (NEGATIVE); SQUAMOUS EPITHELIAL CELL,UR FEW /HPF (NEGATIVE)
--- NOTE | 2022-03-13 18:12 | RAD ---
CHEST, 1 VIEWHISTORY: FEVER, VOMITINGStudy: Single view of the chest.Comparison:NoneFindings:The cardiomediastinal silhouette is normal.No focal consolidations, pleural effusions or pneumothorax. Osseous structures demonstrate no acute abnormality.IMPRESSION:1. No acute cardiopulmonary process.Electronically signed by: ABRAHAM MCCORMICK (Mar 13, 2022 18:10:21)
[2022-03-13] MEDS ORDERED: ZOFRAN INJ 4 MG VIAL IVP PRN (20:05)
[2022-03-13] MEDS ORDERED: D5 NS + KCL 20 MEQ/L 1,000 ML IV SCH (20:05)
[2022-03-13] MEDS ORDERED: NS + KCL 20 MEQ/L 1,000 ML IV ONE (21:05)
[2022-03-13] MEDS ORDERED: K-DUR TAB 20 MEQ PO ONE (21:39)
[2022-03-13] MEDS ORDERED: POTASSIUM CHLORIDE LIQ 20 MEQ UDC PO ONE ×2 (21:47→21:53)
[2022-03-13] MEDS ORDERED: NS + KCL 20 MEQ/L 1,000 ML IV SCH (22:00)
[2022-03-13] MEDS: PROTONIX INJ 40 MG VIAL IVP SCH (22:23)
[2022-03-13 22:47] LABS: T4 (THYROXINE) 5.4 ug/dL (4.7-13.3); TSH (3RD GENERATION) 3.325 uIU/mL (0.358-3.74)
[2022-03-13 22:53] VITALS: BMI 20.2
[2022-03-13] MEDS ORDERED: TYLENOL 325 MG TAB PO ONE (23:44)
[2022-03-13] MEDS ORDERED: CATAPRES TAB 0.1 MG PO ONE (23:58)
[2022-03-14] MEDS: NS + KCL 20 MEQ/L 1,000 ML IV SCH ×2 (05:56→19:21)
[2022-03-14 06:37] LABS: ALBUMIN 2.3 g/dL (3.4-5.0); CALCIUM 8.3 mg/dL (8.5-10.1); COR CA(FOR HYPOALB) 9.7 mg/dL (8.5-10.1); CREATININE 1.51 mg/dL (0.55-1.02); TOTAL PROTEIN 6.2 g/dL (6.4-8.2)
[2022-03-14 06:49] LABS: BASOPHILS % (AUTO) 0.3 % (0.2-1.0); EOSINOPHILS % (AUTO) 0.3 % (0.9-2.9); HEMATOCRIT 30.2 % (36.0-47.0); HEMOGLOBIN 11.1 g/dL (12.0-16.0); LYMPHOCYTES # (AUTO) 0.5 X10^3/uL (1.3-2.9); LYMPHOCYTES % (AUTO) 6.3 % (21.0-51.0); MEAN CORPUSCULAR HEMOGLOBIN 31.2 pg (27.0-34.0); MEAN CORPUSCULAR HGB CONC 36.8 g/dL (33.0-35.0); MEAN CORPUSCULAR VOLUME 84.8 fL (80.0-100.0); MEAN PLATELET VOLUME 8.8 fL (7.4-11.0); MONOCYTES # (AUTO) 1.1 x10^3/uL (0.3-0.8); NEUTROPHILS # (AUTO) 5.5 x10^3/uL (2.2-4.8); NEUTROPHILS % (AUTO) 77.1 % (42.0-75.0); RED BLOOD COUNT 3.56 X10^6/uL (3.5-5.4); RED CELL DISTRIBUTION WIDTH 13.7 % (11.6-16.5); WHITE BLOOD COUNT 7.2 X10^3/uL (3.6-10.0)
[2022-03-14 07:59] LABS: BAND NEUTROPHILS % 10 % (0-10); PLATELET MORPHOLOGY COMMENT NORMAL (NORMAL)
[2022-03-14] MEDS ORDERED: ZESTRIL TAB 20 MG ONE ×2 (08:17→19:44)
[2022-03-14] MEDS ORDERED: INVanz INJ 1 GRAM VIAL 1 G in NS 100 ML IV 100 ML IV SCH (09:00)
[2022-03-14] MEDS ORDERED: POTASSIUM CHLORIDE LIQ 20 MEQ UDC PO ONE (09:00)
[2022-03-14] MEDS: INVanz INJ 1 GRAM VIAL 0.5 G in NS 50 ML IV 50 ML IV SCH ×2 (09:01→20:01)
[2022-03-14] MEDS: ZESTRIL TAB 20 MG PO SCH ×2 (09:02→20:00)
[2022-03-14] MEDS: PROTONIX INJ 40 MG VIAL IVP SCH ×2 (09:02→20:00)
--- NOTE | 2022-03-14 14:29 | DR.H&P ---
H&P - History & Physical for Day of: H&P Date: 03/13/22 - Chief Complaint Chief Complaint: NAUSEA, VOMITING, BACK PAIN AND WEAKNESS FOR 3-4 DAYS - History of Present Illness History of Present Illness: Pt is 62BF, ER admission after arriving with EMS with diffuse weakness and Pt c/o nausea, vomiting, diarrhea and shaking x 1 week. She states this worsened yesterday. Pt has PMH of HTN, GERD, and OA. Pt was evaluted in ER and admitted for treatment of acute pylonephritis. - Past Medical History Past Medical History: Arthritis, Depression, Dyslipidemia, Hypertension - Past Surgical History Surgical History: Hysterectomy, Tonsillectomy - Family History Family Medical History: Cancer, Hypertension - Social History Does patient currently use any type of tobacco product: No Have you used tobacco products in the last 12 months: No Type of Tobacco Use: None Alcohol Use: Occasionally Drug Use: None Risks, benefits, and alternatives of opioids discussed: No Prescription drug monitoring program results: PDMP reviewed and no concerns identified - Medications Home Medications: No Known Drug Allergies Allergy (Verified 05/17/21 14:29) - Review of Systems Constitutional: Weakness, Malaise Eyes: No Symptoms Reported ENT: No Symptoms Reported Respiratory: SOB with Excertion Cardiovascular: Light [place]adedness Gastrointestinal: Nausea, Vomiting, Abdominal Pain Genitourinary: Frequency Musculoskeletal: Back Pain Skin: No Symptoms Reported Neurological: Weakness - Physical Exam Vital Signs: Temperature 98.8 F Pulse Rate [Left Radial] 103 Pulse Rate 107 Respiratory Rate 20 Blood Pressure [Right Arm] 167/98 Blood Pressure [Left Arm] 137/86 Blood Pressure [Standing] 106/71 Blood Pressure [Sitting] 110/70 Blood Pressure [Lying] 120/78 Blood Pressure 128/82 O2 Sat by Pulse Oximetry 98 Oriented: Normal Eyes: Normal Ear: Normal Nose: Normal Throat: Dry Respiratory: RLL Diminished, LLL Diminished Cardiovascular: Tachycardia : Normal Auscultation: Bowel Sounds: Normal Palpation: Normal Tenderness: Diffuse Skin: Decreased [place] Musculoskeletal: Back:Thoracic, Back:Lumbar Psychiatric: Anxiety Affect: Anxious Speech Pattern: Clear, Appropriate - Assessment/Plan (1) Pyelonephritis Status: Acute Plan: ADMIT, IV ATBX, BLOOD AND URINE CULTURE OBTAINED ON ADMISSION. GENTLE IV HYDRATION TO CORRECT HYPONATREMIA. PPI THERAPY, PAIN CONTROL. VERIFY AND RESUME BP MEDICATION, CONTINUE HYPERTENSION PROTOCOL PRN (2) Acute hyponatremia Status: Acute (3) GERD (gastroesophageal reflux disease) Status: Acute (4) Hypertension Status: Acute - Allergies Allergies/Adverse Reactions: Allergies Allergy/AdvReac Type Severity Reaction Status Date / Time No Known Drug Allergies Allergy Verified 05/17/21 14:29
[2022-03-14] MEDS ORDERED: ROCEPHIN 1 GRAM IV PREMIX 1 G/50 ML IV.SOLN. IV SCH (17:00)
[2022-03-14] MEDS ORDERED: TYLENOL 325 MG TAB PO ONE ×2 (19:40→19:43)
[2022-03-14] MEDS: TYLENOL #3 TAB (W/CODEINE) PO PRN (23:44)
[2022-03-15] MEDS: NS + KCL 20 MEQ/L 1,000 ML IV SCH ×3 (05:02→21:19)
[2022-03-15 06:29] LABS: BASOPHILS % (AUTO) 0.3 % (0.2-1.0); EOSINOPHILS # (AUTO) 0.1 x10^3/uL (0.0-0.2); EOSINOPHILS % (AUTO) 1.6 % (0.9-2.9); HEMATOCRIT 32.4 % (36.0-47.0); HEMOGLOBIN 11.8 g/dL (12.0-16.0); LYMPHOCYTES # (AUTO) 0.4 X10^3/uL (1.3-2.9); LYMPHOCYTES % (AUTO) 8.1 % (21.0-51.0); MEAN CORPUSCULAR HEMOGLOBIN 31.1 pg (27.0-34.0); MEAN CORPUSCULAR HGB CONC 36.3 g/dL (33.0-35.0); MEAN CORPUSCULAR VOLUME 85.6 fL (80.0-100.0); MEAN PLATELET VOLUME 8.5 fL (7.4-11.0); MONOCYTES # (AUTO) 1.3 x10^3/uL (0.3-0.8); MONOCYTES % (AUTO) 22.9 % (0.0-13.0); NEUTROPHILS # (AUTO) 3.7 x10^3/uL (2.2-4.8); NEUTROPHILS % (AUTO) 67.1 % (42.0-75.0); RED BLOOD COUNT 3.79 X10^6/uL (3.5-5.4); RED CELL DISTRIBUTION WIDTH 14.1 % (11.6-16.5); WHITE BLOOD COUNT 5.5 X10^3/uL (3.6-10.0)
[2022-03-15 06:38] LABS: BLOOD UREA NITROGEN 21 mg/dL (7-18); CALCIUM 8.7 mg/dL (8.5-10.1); CARBON DIOXIDE 19.8 mmol/L (21-32); CHLORIDE 104 mmol/L (98-107); CREATININE 1.29 mg/dL (0.55-1.02); SODIUM 136 mmol/L (136-145); eGFR NON BLACK RACES 44 (>60)
[2022-03-15 07:04] LABS: ALANINE AMINOTRANSFERASE 50 Units/L (12-78); ALBUMIN 2.1 g/dL (3.4-5.0); ALKALINE PHOSPHATASE 63 Units/L (46-116); ASPARTATE AMINO TRANSFERASE 61 Units/L (15-37); COR CA(FOR HYPOALB) 10.2 mg/dL (8.5-10.1); MAGNESIUM 1.7 mg/dL (1.7-2.9); TOTAL PROTEIN 6.5 g/dL (6.4-8.2)
[2022-03-15 07:20] LABS: PLATELET MORPHOLOGY COMMENT NORMAL (NORMAL)
[2022-03-15 07:21] LABS: BAND NEUTROPHILS % 10 % (0-10)
[2022-03-15] MEDS ORDERED: ZESTRIL TAB 20 MG ONE ×2 (08:26→20:41)
[2022-03-15] MEDS: PROTONIX INJ 40 MG VIAL IVP SCH ×2 (08:47→21:17)
[2022-03-15] MEDS: INVanz INJ 1 GRAM VIAL 0.5 G in NS 50 ML IV 50 ML IV SCH ×2 (08:47→21:15)
[2022-03-15] MEDS: ZESTRIL TAB 20 MG PO SCH ×2 (08:57→21:16)
[2022-03-15 11:45] LABS: CRYPTOSPORIDIUM PARVUM ANTIGEN NEGATIVE (NEGATIVE); GIARDIA LAMBLIA ANTIGEN NEGATIVE (NEGATIVE)
[2022-03-15] MEDS: NORCO 5/325 MG TAB PO PRN (12:56)
[2022-03-15] MEDS ORDERED: POTASSIUM CHL 40 MEQ/NS 0.45% 500 ML IV PRN (13:49)
[2022-03-15] MEDS ORDERED: KLOR-CON PO PRN (13:49)
[2022-03-15] MEDS ORDERED: K-RIDER 10 MEQ/NS 100 ML 10 MEQ/100 ML BAG IV PRN (13:49)
[2022-03-15] MEDS ORDERED: POTASSIUM CHLORIDE LIQ 20 MEQ UDC PO PRN (13:49)
[2022-03-15] MEDS ORDERED: MAGNESIUM SULFATE 1 GRAM/100 mL PREMIX 1 G/100 ML BAG IV PRN (13:49)
[2022-03-15] MEDS ORDERED: MICRO K EXTEN CAP 10 MEQ PO PRN (13:49)
[2022-03-15] MEDS ORDERED: POTASSIUM CHL 60 MEQ/NS 0.45% 500 ML IV PRN (13:49)
[2022-03-15] MEDS: LOPRESSOR TAB 25 MG PO PRN (16:25)
[2022-03-15] MEDS: LIBRIUM PO SCH (18:28)
[2022-03-15] MEDS ORDERED: CATAPRES TAB 0.1 MG PO ONE (20:37)
[2022-03-15] MEDS: VISTARIL PO PRN (21:16)
[2022-03-15] MEDS: TYLENOL #3 TAB (W/CODEINE) PO PRN (21:21)
[2022-03-16] MEDS: LIBRIUM PO SCH ×2 (01:25→09:35)
[2022-03-16] MEDS: NS + KCL 20 MEQ/L 1,000 ML IV SCH ×3 (06:01→22:40)
[2022-03-16 06:40] LABS: BASOPHILS % (AUTO) 0.5 % (0.2-1.0); EOSINOPHILS % (AUTO) 0.4 % (0.9-2.9); HEMATOCRIT 32.4 % (36.0-47.0); HEMOGLOBIN 11.5 g/dL (12.0-16.0); LYMPHOCYTES # (AUTO) 0.7 X10^3/uL (1.3-2.9); LYMPHOCYTES % (AUTO) 11.8 % (21.0-51.0); MEAN CORPUSCULAR HEMOGLOBIN 30.2 pg (27.0-34.0); MEAN CORPUSCULAR HGB CONC 35.4 g/dL (33.0-35.0); MEAN CORPUSCULAR VOLUME 85.3 fL (80.0-100.0); MEAN PLATELET VOLUME 8.7 fL (7.4-11.0); MONOCYTES # (AUTO) 2.2 x10^3/uL (0.3-0.8); MONOCYTES % (AUTO) 35.6 % (0.0-13.0); NEUTROPHILS # (AUTO) 3.1 x10^3/uL (2.2-4.8); NEUTROPHILS % (AUTO) 51.7 % (42.0-75.0); WHITE BLOOD COUNT 6.1 X10^3/uL (3.6-10.0)
[2022-03-16 06:57] LABS: ALANINE AMINOTRANSFERASE 46 Units/L (12-78); ALBUMIN 1.9 g/dL (3.4-5.0); ALKALINE PHOSPHATASE 64 Units/L (46-116); ASPARTATE AMINO TRANSFERASE 80 Units/L (15-37); BLOOD UREA NITROGEN 19 mg/dL (7-18); CALCIUM 8.2 mg/dL (8.5-10.1); CARBON DIOXIDE 19.9 mmol/L (21-32); CHLORIDE 105 mmol/L (98-107); COR CA(FOR HYPOALB) 9.9 mg/dL (8.5-10.1); CREATININE 1.04 mg/dL (0.55-1.02); MAGNESIUM 2.4 mg/dL (1.7-2.9); SODIUM 135 mmol/L (136-145); eGFR NON BLACK RACES 57 (>60)
[2022-03-16 07:56] LABS: BAND NEUTROPHILS % 4 % (0-10); PLATELET MORPHOLOGY COMMENT NORMAL (NORMAL)
[2022-03-16] MEDS ORDERED: ZESTRIL TAB 20 MG ONE ×2 (08:58→19:25)
[2022-03-16] MEDS: PROTONIX INJ 40 MG VIAL IVP SCH ×2 (09:34→20:41)
[2022-03-16] MEDS: INVanz INJ 1 GRAM VIAL 0.5 G in NS 50 ML IV 50 ML IV SCH ×2 (09:34→20:41)
[2022-03-16] MEDS: K-DUR TAB 20 MEQ PO PRN (09:34)
[2022-03-16] MEDS: ZESTRIL TAB 20 MG PO SCH ×2 (09:35→20:41)
[2022-03-16] MEDS: NORCO 5/325 MG TAB PO PRN (20:41)
[2022-03-17 06:23] LABS: BASOPHILS % (AUTO) 0.3 % (0.2-1.0); EOSINOPHILS # (AUTO) 0.1 x10^3/uL (0.0-0.2); EOSINOPHILS % (AUTO) 0.8 % (0.9-2.9); HEMATOCRIT 29.4 % (36.0-47.0); HEMOGLOBIN 10.6 g/dL (12.0-16.0); LYMPHOCYTES # (AUTO) 0.9 X10^3/uL (1.3-2.9); LYMPHOCYTES % (AUTO) 10.5 % (21.0-51.0); MEAN CORPUSCULAR HEMOGLOBIN 30.8 pg (27.0-34.0); MEAN CORPUSCULAR HGB CONC 36.2 g/dL (33.0-35.0); MEAN CORPUSCULAR VOLUME 85.1 fL (80.0-100.0); MEAN PLATELET VOLUME 8.5 fL (7.4-11.0); MONOCYTES % (AUTO) 24.3 % (0.0-13.0); NEUTROPHILS # (AUTO) 5.2 x10^3/uL (2.2-4.8); NEUTROPHILS % (AUTO) 64.1 % (42.0-75.0); RED BLOOD COUNT 3.46 X10^6/uL (3.5-5.4); RED CELL DISTRIBUTION WIDTH 14.1 % (11.6-16.5); WHITE BLOOD COUNT 8.2 X10^3/uL (3.6-10.0)
[2022-03-17 06:33] LABS: ALANINE AMINOTRANSFERASE 79 Units/L (12-78); ALBUMIN 1.8 g/dL (3.4-5.0); ALKALINE PHOSPHATASE 85 Units/L (46-116); ASPARTATE AMINO TRANSFERASE 157 Units/L (15-37); BLOOD UREA NITROGEN 17 mg/dL (7-18); CARBON DIOXIDE 21.2 mmol/L (21-32); CHLORIDE 112 mmol/L (98-107); COR CA(FOR HYPOALB) 9.8 mg/dL (8.5-10.1); CREATININE 0.92 mg/dL (0.55-1.02); SODIUM 142 mmol/L (136-145); TOTAL PROTEIN 5.8 g/dL (6.4-8.2); eGFR NON BLACK RACES > 60 (>60)
[2022-03-17] MEDS ORDERED: ZESTRIL TAB 20 MG ONE ×2 (07:00→19:59)
[2022-03-17 07:16] LABS: PLATELET MORPHOLOGY COMMENT NORMAL (NORMAL)
[2022-03-17] MEDS: LOPRESSOR TAB 25 MG PO PRN (07:46)
[2022-03-17] MEDS: INVanz INJ 1 GRAM VIAL 0.5 G in NS 50 ML IV 50 ML IV SCH ×2 (08:50→20:51)
[2022-03-17] MEDS: PROTONIX INJ 40 MG VIAL IVP SCH ×2 (08:50→20:51)
[2022-03-17] MEDS: ZESTRIL TAB 20 MG PO SCH ×2 (08:50→20:51)
[2022-03-17] MEDS: K-DUR TAB 20 MEQ PO PRN (09:12)
[2022-03-17] MEDS: NORCO 5/325 MG TAB PO PRN ×2 (09:27→17:51)
[2022-03-17] MEDS: VISTARIL PO PRN ×2 (09:29→17:51)
[2022-03-17] MEDS ORDERED: CATAPRES TAB 0.1 MG PO ONE (12:56)
[2022-03-17] MEDS ORDERED: NS 100 ML IV 100 ML ONE (17:04)
[2022-03-17] MEDS ORDERED: LOPRESSOR TAB 25 MG PO PRN (17:37)
--- NOTE | 2022-03-17 17:57 | CT ---
HISTORYPyelonephritis; abdominal painSTUDYABDOMEN/PELVIS WITH CONCOMPARISONJuly 2021TECHNIQUEAxial CT images of the abdomen and pelvis were obtained after the administration of IV contrast, 100 mL Omnipaque 370, and reformatted into coronal and sagittal planes for further evaluation. Enteric contrast was administered.Radiation dose: 391.20 mGy-cm total DLPFINDINGSSmall bibasilar pleural effusions with adjacent atelectasis.Stomach appears normal.Diffuse fatty infiltration of the liver.Spleen, pancreas and adrenal glands are unremarkable.Gallbladder appears normal with no biliary dilatation.Overall, decreased attenuation of the right kidney in regards to the left with bands of decreased attenuation in the cortex. Mild right periureteral stranding.No hydronephrosis or hydroureter.Left kidney and ureter are unremarkable.Unremarkable appearance of the urinary bladder.Imaged reproductive structures are unremarkable.Fluid throughout the majority of the colon with no significant colonic wall thickening.Unremarkable appearance of the small bowel.No evidence of acute appendicitis.No pneumoperitoneum.No significant fluid collection.No adenopathy.No acute osseous abnormality.IMPRESSION1. Overall, decreased attenuation of the right kidney in regards to the left with bands of decreased attenuation in the cortex. Mild right periureteral stranding. Findings are consistent with the given history pyelonephritis.2. Small nonspecific bilateral layering pleural effusions with adjacent atelectasis.3. Diffuse fatty infiltration of the liver.4. Fluid throughout the colon, without colonic wall thickening, can be seen with nonspecific diarrhea.Electronically signed by: Colt Lucia (Mar 17, 2022 17:56:34)
[2022-03-17] MEDS: NS + KCL 20 MEQ/L 1,000 ML IV SCH (18:22)
[2022-03-18] MEDS: NS + KCL 20 MEQ/L 1,000 ML IV SCH ×2 (01:04→07:45)
[2022-03-18] MEDS ORDERED: CATAPRES TAB 0.1 MG PO ONE (07:53)
[2022-03-18] MEDS ORDERED: CATAPRES TAB 0.1 MG ONE (07:55)
[2022-03-18] MEDS ORDERED: ZESTRIL TAB 20 MG ONE (08:11)
[2022-03-18] MEDS: INVanz INJ 1 GRAM VIAL 0.5 G in NS 50 ML IV 50 ML IV SCH (08:22)
[2022-03-18] MEDS: PROTONIX INJ 40 MG VIAL IVP SCH (08:22)
[2022-03-18] MEDS: ZESTRIL TAB 20 MG PO SCH (08:33)
[2022-03-18 08:38] LABS: BASOPHILS # (AUTO) 0.2 X10^3/uL (0.0-0.1); BASOPHILS % (AUTO) 3.1 % (0.2-1.0); EOSINOPHILS # (AUTO) 0.1 x10^3/uL (0.0-0.2); EOSINOPHILS % (AUTO) 1.3 % (0.9-2.9); HEMATOCRIT 33.8 % (36.0-47.0); LYMPHOCYTES % (AUTO) 13.7 % (21.0-51.0); MEAN CORPUSCULAR HEMOGLOBIN 30.4 pg (27.0-34.0); MEAN CORPUSCULAR HGB CONC 35.5 g/dL (33.0-35.0); MEAN CORPUSCULAR VOLUME 85.6 fL (80.0-100.0); MONOCYTES # (AUTO) 0.9 x10^3/uL (0.3-0.8); MONOCYTES % (AUTO) 13.2 % (0.0-13.0); NEUTROPHILS # (AUTO) 4.8 x10^3/uL (2.2-4.8); NEUTROPHILS % (AUTO) 68.7 % (42.0-75.0); RED BLOOD COUNT 3.95 X10^6/uL (3.5-5.4); RED CELL DISTRIBUTION WIDTH 14.3 % (11.6-16.5)
[2022-03-18 08:58] LABS: ALANINE AMINOTRANSFERASE 82 Units/L (12-78); ALBUMIN 2.2 g/dL (3.4-5.0); ALKALINE PHOSPHATASE 94 Units/L (46-116); ASPARTATE AMINO TRANSFERASE 109 Units/L (15-37); BLOOD UREA NITROGEN 15 mg/dL (7-18); CALCIUM 8.8 mg/dL (8.5-10.1); CARBON DIOXIDE 21.3 mmol/L (21-32); COR CA(FOR HYPOALB) 10.2 mg/dL (8.5-10.1); CREATININE 0.82 mg/dL (0.55-1.02); TOTAL PROTEIN 6.6 g/dL (6.4-8.2); eGFR NON BLACK RACES > 60 (>60)
[2022-03-18 09:11] LABS: SODIUM 145 mmol/L (136-145)
[2022-03-18 09:16] LABS: CHLORIDE 115 mmol/L (98-107)
[2022-03-18] MEDS ORDERED: APRESOLINE INJ 20 MG VIAL IVP ONE (09:56)
[2022-03-18] MEDS ORDERED: NORVASC TAB 5 MG PO ONE ×2 (10:42→12:00)
[2022-03-18] MEDS ORDERED: NORVASC TAB 5 MG ONE (10:48)
[2022-03-18] MEDS: VISTARIL PO PRN (12:06)
[2022-03-18 12:45] VITALS: BP 170/88
== END 2022-03-18 14:25 | disposition home or self-care (01) | DRG 690 ==
LOC: ER 14:47 → MED/SURG 18:28
PROVIDERS: ADMIT Internal Medicine; ATTEND Internal Medicine
DX: M54.89 Other dorsalgia; E87.1 Hypo-osmolality and hyponatremia; Z20.822 Contact with and (suspected) exposure to COVID-19; K21.9 Gastro-esophageal reflux disease without esophagitis; Z91.81 History of falling; R94.31 Abnormal electrocardiogram [ECG] [EKG]; K29.00 Acute gastritis without bleeding; N10 Acute pyelonephritis; E86.0 Dehydration; R11.2 Nausea with vomiting, unspecified; F10.10 Alcohol abuse, uncomplicated; N39.0 Urinary tract infection, site not specified; E78.2 Mixed hyperlipidemia; I10 Essential (primary) hypertension; F41.8 Other specified anxiety disorders; B96.29 Other Escherichia coli [E. coli] as the cause of diseases classified elsewhere; E87.6 Hypokalemia; R26.89 Other abnormalities of gait and mobility; R06.02 Shortness of breath

== ENCOUNTER 2023-05-18 15:51 | Observation (INO) ==
--- NOTE | 2023-05-18 17:47 | EKG ---
Test Reason : chest pain Blood Pressure : */* mmHG Vent. Rate : 74 BPM Atrial Rate : 74 BPM P-R Int : 168 ms QRS Dur : 90 ms QT Int : 434 ms P-R-T Axes : 40 -39 55 degrees QTc Int : 481 ms Normal sinus rhythm Left axis deviation Left ventricular hypertrophy ( R in aVL , [place] product , Romhilt-Jimenez ) Cannot rule out Septal infarct , age undetermined Abnormal ECG No previous ECGs available Confirmed by Leonard Castillo ([id number]) on 05/19/2023 8:04:47 AM Referred By: MOSHE SHAW Confirmed By: Leonard Castillo
[2023-05-18 18:13] LABS: BASOPHILS # (AUTO) 0.1 X10^3/uL (0.0-0.1); BASOPHILS % (AUTO) 1.4 % (0.2-1.0); EOSINOPHILS # (AUTO) 0.2 x10^3/uL (0.0-0.2); EOSINOPHILS % (AUTO) 2.6 % (0.9-2.9); HEMATOCRIT 38.8 % (36.0-47.0); HEMOGLOBIN 13.5 g/dL (12.0-16.0); LYMPHOCYTES # (AUTO) 3.7 X10^3/uL (1.3-2.9); LYMPHOCYTES % (AUTO) 58.4 % (21.0-51.0); MEAN CORPUSCULAR HEMOGLOBIN 30.4 pg (27.0-34.0); MEAN CORPUSCULAR HGB CONC 34.9 g/dL (33.0-35.0); MEAN CORPUSCULAR VOLUME 87.2 fL (80.0-100.0); MEAN PLATELET VOLUME 6.7 fL (7.4-11.0); MONOCYTES # (AUTO) 0.3 x10^3/uL (0.3-0.8); MONOCYTES % (AUTO) 5.4 % (0.0-13.0); NEUTROPHILS % (AUTO) 32.2 % (42.0-75.0); PLATELET COUNT 377 X10^3/uL (150.0-450.0); RED BLOOD COUNT 4.45 X10^6/uL (3.5-5.4); RED CELL DISTRIBUTION WIDTH 14.4 % (11.6-16.5); WHITE BLOOD COUNT 6.3 X10^3/uL (3.6-10.0)
[2023-05-18] MEDS ORDERED: ZOFRAN INJ 4 MG VIAL IVP PRN (18:20)
[2023-05-18] MEDS: PROTONIX INJ 40 MG VIAL IVP SCH ×3 (18:20→21:24)
--- NOTE | 2023-05-18 18:26 | DR.H&P ---
H&P - History & Physical for Day of: H&P Date: 05/18/23 - Chief Complaint Chief Complaint: CHEST PAIN, SOB, ABDOMINAL PAIN - History of Present Illness History of Present Illness: PT IS 63 BF, DIRECT ADMIT FROM DR SHAW OFFICE WITH CO CHEST PAIN AND SOB. PT RECENTLY HAD A CAROTID US AND ECHO. SHE HAD CT OF HER ABD AND PELVIS REVEALING GASTRITIS. PT REPORTS HER PAIN IS EPIGASTRIC AREA. PT REPORTS "GETTING WEAK AND PASSING OUT" SEVERAL EPISODES THIS PAST MONTH. PT REPORT SHE HAS BEEN TAKING BP MEDICATION AND PPI THERAPY FOR GERD. PT ADMITTED FOR TREATMENT AND EVALUATION OF ACUTE ILLNESS. - Past Medical History Past Medical History: Hypertension, Dyslipidemia, Liver Disease, Depression, Anxiety, GERD, Arthritis - Past Surgical History Surgical History: Hysterectomy - Family History Family Medical History: Cancer - Social History Does patient currently use any type of tobacco product: Yes (chewing tobacco) Have you used tobacco products in the last 12 months: Yes Type of Tobacco Use: chewing Alcohol Use: None Drug Use: None - Review of Systems Constitutional: Weakness Eyes: No Symptoms Reported ENT: No Symptoms Reported Respiratory: SOB with Excertion Cardiovascular: Chest Pain, Edema Gastrointestinal: Nausea, Vomiting, Abdominal Pain Genitourinary: No Symptoms Reported Musculoskeletal: Back Pain Skin: No Symptoms Reported Neurological: Weakness Oriented: Normal Eyes: Normal Ear: Normal Nose: Normal Throat: Normal Respiratory: RLL Diminished, LLL Diminished Cardiovascular: Normal, Edema (TRACE PEDAL EDEMA) : Normal Auscultation: Bowel Sounds: Normal Palpation: Normal Tenderness: Epigastric Skin: Decreased Turgur Musculoskeletal: Back:Lumbar Psychiatric: Anxiety Affect: Anxious Speech Pattern: Clear, Appropriate - Assessment/Plan (1) Chest pain Status: Acute Plan: ADMIT, SERIAL CE AND EKG. TELEMETRY. BP CONTROL, PPI THERAPY, OCCULT STOOL. GI CONSULT, NPO AFTER MIDNIGHT. SEE LAST CT SCAN (2) GERD (gastroesophageal reflux disease) Status: Acute (3) Hypertension Status: Acute (4) Syncope and collapse Status: Acute - Allergies Allergies/Adverse Reactions: Allergies Allergy/AdvReac Type Severity Reaction Status Date / Time No Known Drug Allergies Allergy Verified 05/17/21 14:29 - Medications Home Medications: Home Medications Medication Instructions Recorded Confirmed lisinopril 20 mg tablet 20 mg PO BID 08/08/21 05/18/23 metoprolol tartrate 50 mg tablet 50 mg PO BID 03/17/22 05/18/23 citalopram 20 mg tablet 20 mg PO DAILY 08/08/22 05/18/23 cyclobenzaprine 5 mg tablet 5 mg PO TID PRN 08/08/22 05/18/23 gabapentin 300 mg capsule 300 mg PO TID 08/08/22 05/18/23 omeprazole 20 mg capsule,delayed 20 mg PO DAILY 08/08/22 05/18/23 release nifedipine 30 mg tablet,extended 30 mg PO DAILY 05/18/23 05/18/23 release Previous Rx's Medication Instructions Recorded hydralazine 50 mg tablet 50 mg PO TID HYPERTENSION #30 tabs 08/23/22
[2023-05-18 19:05] LABS: ALANINE AMINOTRANSFERASE 25 Units/L (12-78); ALBUMIN 3.2 g/dL (3.4-5.0); ALKALINE PHOSPHATASE 118 Units/L (46-116); ASPARTATE AMINO TRANSFERASE 29 Units/L (15-37); BLOOD UREA NITROGEN 5 mg/dL (7-18); CALCIUM 8.8 mg/dL (8.5-10.1); CARBON DIOXIDE 25.7 mmol/L (21-32); CHLORIDE 102 mmol/L (98-107); COR CA(FOR HYPOALB) 9.4 mg/dL (8.5-10.1); CREATINE KINASE 101 Units/L (26-192); GLUCOSE 87 mg/dL (65-99); POTASSIUM 3.6 mmol/L (3.5-5.1); SODIUM 138 mmol/L (136-145); TOTAL PROTEIN 8.6 g/dL (6.4-8.2); eGFR NON BLACK RACES > 60 (>60)
[2023-05-18] MEDS ORDERED: ZESTRIL TAB 20 MG ONE (20:16)
[2023-05-18] MEDS: APRESOLINE TAB 25 MG PO SCH (21:22)
[2023-05-18] MEDS: LOPRESSOR TAB 50 MG PO SCH (21:23)
[2023-05-18] MEDS: NEURONTIN CAP 300 MG PO SCH (21:23)
[2023-05-18] MEDS: ZESTRIL TAB 20 MG PO SCH (21:23)
--- NOTE | 2023-05-18 23:57 | EKG ---
Test Reason : chest pain Blood Pressure : */* mmHG Vent. Rate : 95 BPM Atrial Rate : 95 BPM P-R Int : 128 ms QRS Dur : 94 ms QT Int : 386 ms P-R-T Axes : 20 -26 151 degrees QTc Int : 485 ms Sinus rhythm with premature atrial complexes Moderate voltage criteria for LVH, may be normal variant ( R in aVL , [place] product ) Possible Lateral infarct , age undetermined Abnormal ECG When compared with ECG of 18-MAY-2023 17:35, (Unconfirmed) premature atrial complexes are now present Minimal criteria for Septal infarct are no longer present T wave inversion now evident in Lateral leads Confirmed by Leonard Castillo ([id number]) on 05/19/2023 8:01:40 AM Referred By: MOSHE SHAW Confirmed By: Leonard Castillo
--- NOTE | 2023-05-19 02:02 | RAD ---
EXAM:CHEST, 1 VIEWHISTORY:CHEST PAIN;COMPARISON:Two views of the chest July 29, 2022TECHNIQUE:Frontal chest radiographFINDINGS:No confluent airspace opacity or pneumothorax. Midline trachea. The heart size is prominent likely accentuated by technique.IMPRESSION:Nothing acuteTHIS IS AN ELECTRONICALLY VERIFIED FINAL REPORT05/19/2023 1:57 AM - Electronically signed by Cj Preciado MD
[2023-05-19] MEDS: NEURONTIN CAP 300 MG PO SCH ×2 (05:31→14:00)
[2023-05-19] MEDS: APRESOLINE TAB 25 MG PO SCH ×2 (05:32→14:00)
--- NOTE | 2023-05-19 05:46 | EKG ---
Test Reason : chest pain Blood Pressure : */* mmHG Vent. Rate : 92 BPM Atrial Rate : 92 BPM P-R Int : 164 ms QRS Dur : 90 ms QT Int : 376 ms P-R-T Axes : 42 -36 81 degrees QTc Int : 464 ms Normal sinus rhythm Left axis deviation Moderate voltage criteria for LVH, may be normal variant ( R in aVL , [place] product ) Nonspecific T wave abnormality Abnormal ECG When compared with ECG of 18-MAY-2023 23:48, (Unconfirmed) premature atrial complexes are no longer present Confirmed by Leonard Castillo ([id number]) on 05/19/2023 8:00:44 AM Referred By: MOSHE SHAW Confirmed By: Leonard Castillo
[2023-05-19] MEDS ORDERED: CONSULT PHARMACY - POTASSIUM & MAGNESIUM XX SCH ×2 (07:00)
[2023-05-19] MEDS ORDERED: ZESTRIL TAB 20 MG ONE (08:16)
[2023-05-19] MEDS ORDERED: PriLOSEC PO SCH (09:00)
[2023-05-19] MEDS ORDERED: K-DUR TAB 20 MEQ PO SCH (09:00)
[2023-05-19] MEDS ORDERED: PROCARDIA XL PO SCH (09:00)
[2023-05-19] MEDS ORDERED: CELEXA PO SCH (09:00)
[2023-05-19] MEDS ORDERED: NS 1,000 ML IV 1,000 ML IV SCH (09:00)
[2023-05-19] MEDS: PROTONIX INJ 40 MG VIAL IVP SCH (09:54)
[2023-05-19] MEDS: LOPRESSOR TAB 50 MG PO SCH (09:54)
[2023-05-19] MEDS: ZESTRIL TAB 20 MG PO SCH (09:55)
[2023-05-19 12:55] VITALS: RESP 20
[2023-05-19 16:16] VITALS: BP 161/90; PULSE 102; TEMP 98; O2SAT 99
== END 2023-05-19 16:50 | disposition home or self-care (01) ==
LOC: MED/SURG
PROVIDERS: ADMIT Internal Medicine; ATTEND Internal Medicine
DX: R07.89 Other chest pain; R06.02 Shortness of breath; K21.9 Gastro-esophageal reflux disease without esophagitis; R10.84 Generalized abdominal pain; E78.2 Mixed hyperlipidemia; R55 Syncope and collapse; I10 Essential (primary) hypertension; E83.42 Hypomagnesemia; F41.8 Other specified anxiety disorders

== ENCOUNTER 2024-11-29 16:13 | Observation (INO) ==
[2024-11-29] MEDS ORDERED: NORCO 7.5/325 MG TAB PO PRN (17:44)
--- NOTE | 2024-11-29 17:50 | DR.H&P ---
H&P History & Physical for Day of: H&P Date: 11/29/24 Chief Complaint Chief Complaint: CHEST PAIN History of Present Illness History of Present Illness: PT IS 64 BF, DIRECT ADMIT FROM DR SHAW'S OFFICE WITH CO CHEST PAIN THAT RADIATES DOWN HER LEFT ARM. PT REPORTS SHE HAS TAKEN NITROGLYCERINE SL FOR PAIN AND HAS BEEN "FALLING ALL OVER THE PLACE" PT CO SOB ON EXERTION. PT HAS HX HTN, OA, GERD AND NEUROPATHY. PT ADMITTED FOR EVALUATION AND TREATMENT OF ACUTE ILLNESS. Past Medical History Past Medical History: Anxiety, Arthritis, Depression, Dyslipidemia, GERD, Hypertension and Liver Disease Past Surgical History Surgical History: Hysterectomy Family History Family Medical History: Cancer Medications Home Medications: Home Medications Medication Instructions Recorded Confirmed Type lisinopril 20 mg tablet 20 mg PO BID 08/08/21 05/04/24 History metoprolol tartrate 50 mg tablet 50 mg PO BID 03/17/22 05/04/24 History citalopram 20 mg tablet 20 mg PO HS 08/08/22 05/04/24 History cyclobenzaprine 5 mg tablet 10 mg PO TID PRN 08/08/22 05/04/24 History gabapentin 300 mg capsule 300 mg PO TID 08/08/22 05/04/24 History bempedoic acid 180 mg-ezetimibe 10 1 tab PO QDAY 04/26/24 05/04/24 History mg tablet (Nexlizet) hydrochlorothiazide 25 mg tablet 25 mg PO QDAY 04/26/24 05/04/24 History pantoprazole 40 mg tablet,delayed 40 mg PO BID 04/26/24 05/04/24 History release bromfenac 0.07 % eye drops drp ophthalmic (eye) 05/04/24 History (Prolensa) hydrocodone 5 mg-acetaminophen 325 1 tab PO DAILY PRN 05/04/24 05/04/24 History mg tablet ofloxacin 0.3 % eye drops drp 05/04/24 History potassium chloride 10 mEq PO 05/04/24 History tablet,extended release prednisolone acetate 1 % eye drp ophthalmic (eye) 05/04/24 History drops,suspension Allergies Allergies Allergy/AdvReac Type Severity Reaction Status Date / Time No Known Drug Allergies Allergy Verified 04/26/24 14:42 Review of Systems Constitutional: Weakness Eyes: No Symptoms Reported ENT: No Symptoms Reported Respiratory: Shortness of Breath Cardiovascular: Chest Pain Genitourinary: No Symptoms Reported Musculoskeletal: Arm Pain, Back Pain and Neck Pain Skin: No Symptoms Reported Neurological: No Symptoms Reported Oriented: Normal Eyes: Normal Ear: Normal Nose: Normal Throat: Dry Respiratory: RLL Diminished and LLL Diminished Cardiovascular: Normal; negative Edema Auscultation: Bowel Sounds: Normal Palpation: Normal Tenderness: Epigastric and Mild Musculoskeletal: Back:Thoracic, Back:Lumbar and Motor Deficit Psychiatric: Anxiety Mood Description: Anxious Speech Pattern: Clear and Appropriate Assessment/Plan (1) Chest pain: Status: Acute Plan: ADMIT, SERIAL CE AND EKG BP CONTROL, PRN SUPPLEMENTAL O2 VERIFY HOME MEDICATION CXR ON ADMISSION (2) GERD (gastroesophageal reflux disease): Status: Acute (3) Hypertension: Status: Acute (4) Hypertension, uncontrolled: Status: Acute
--- NOTE | 2024-11-29 18:12 | EKG ---
Test Reason : C/P R/O M/I Blood Pressure : */* mmHG Vent. Rate : 80 BPM Atrial Rate : 80 BPM P-R Int : 166 ms QRS Dur : 96 ms QT Int : 406 ms P-R-T Axes : 135 200 123 degrees QTc Int : 468 ms Suspect arm lead reversal, interpretation assumes no reversal Normal sinus rhythm Right superior axis deviation Pulmonary disease pattern Abnormal ECG When compared with ECG of 04-MAY-2024 11:13, Significant changes have occurred Confirmed by Juan Ravi MD ([id number]) on 11/30/2024 7:27:00 AM Referred By: Confirmed By: Juan Ravi MD
[2024-11-29 19:23] LABS: BASOPHILS # (AUTO) 0.1 X10^3/uL (0.0-0.1); BASOPHILS % (AUTO) 1.3 % (0.2-1.0); EOSINOPHILS # (AUTO) 0.2 x10^3/uL (0.0-0.2); HEMATOCRIT 37.1 % (36.0-47.0); HEMOGLOBIN 13.1 g/dL (12.0-16.0); LYMPHOCYTES % (AUTO) 55.7 % (21.0-51.0); MEAN CORPUSCULAR HEMOGLOBIN 30.8 pg (27.0-34.0); MEAN CORPUSCULAR HGB CONC 35.4 g/dL (33.0-35.0); MEAN CORPUSCULAR VOLUME 87.1 fL (80.0-100.0); MEAN PLATELET VOLUME 7.3 fL (7.4-11.0); MONOCYTES # (AUTO) 0.7 x10^3/uL (0.3-0.8); MONOCYTES % (AUTO) 12.2 % (0.0-13.0); NEUTROPHILS # (AUTO) 1.5 x10^3/uL (2.2-4.8); NEUTROPHILS % (AUTO) 27.8 % (42.0-75.0); PLATELET COUNT 281 X10^3/uL (150.0-450.0); RED BLOOD COUNT 4.26 X10^6/uL (3.5-5.4); RED CELL DISTRIBUTION WIDTH 13.8 % (11.6-16.5); WHITE BLOOD COUNT 5.3 X10^3/uL (3.6-10.0)
[2024-11-29 19:40] LABS: ALANINE AMINOTRANSFERASE 20 Units/L (12-78); ALBUMIN 3.4 g/dL (3.4-5.0); ALKALINE PHOSPHATASE 97 Units/L (46-116); ASPARTATE AMINO TRANSFERASE 28 Units/L (15-37); BLOOD UREA NITROGEN 8 mg/dL (7-18); CALCIUM 9.1 mg/dL (8.5-10.1); CARBON DIOXIDE 26.5 mmol/L (21-32); CHLORIDE 96 mmol/L (98-107); CREATININE 0.82 mg/dL (0.55-1.02); GLUCOSE 98 mg/dL (65-99); SODIUM 135 mmol/L (136-145); eGFR NON BLACK RACES > 60 (>60)
[2024-11-29 19:46] LABS: POTASSIUM 2.8 mmol/L (3.5-5.1)
[2024-11-29] MEDS ORDERED: CONSULT PHARMACY - POTASSIUM & MAGNESIUM XX SCH (20:00)
[2024-11-29] MEDS ORDERED: ZESTRIL TAB 20 MG ONE (20:52)
[2024-11-29] MEDS: K-DUR TAB 20 MEQ PO SCH (21:15)
[2024-11-29] MEDS: CARAFATE ORAL SUSP PO SCH (21:15)
[2024-11-29] MEDS: ZESTRIL TAB 20 MG PO SCH (21:16)
[2024-11-29] MEDS: PROTONIX INJ 40 MG VIAL IVP SCH (21:37)
--- NOTE | 2024-11-29 21:56 | EKG ---
Test Reason : CHEST PAIN RO ID Blood Pressure : */* mmHG Vent. Rate : 77 BPM Atrial Rate : 77 BPM P-R Int : 158 ms QRS Dur : 94 ms QT Int : 424 ms P-R-T Axes : 49 -30 57 degrees QTc Int : 479 ms Normal sinus rhythm Poor R-wave progression Left axis deviation Moderate voltage criteria for LVH, may be normal variant ( R in aVL , [place] product ) Abnormal ECG When compared with ECG of 29-NOV-2024 17:48, (Unconfirmed) Sinus rhythm has replaced Ectopic atrial rhythm QRS axis shifted right Confirmed by Juan Ravi MD ([id number]) on 11/30/2024 7:24:18 AM Referred By: Confirmed By: Juan Ravi MD
[2024-11-29 23:10] VITALS: BMI 30.4
[2024-11-30 04:23] LABS: BILIRUBIN,URINE NEGATIVE (NEGATIVE); BLOOD/HEMOGLOBIN,URINE 1+ (NEGATIVE); GLUCOSE, URINE NEGATIVE (NEGATIVE); KETONES,URINE NEGATIVE (NEGATIVE); LEUKOCYTE ESTERASE ,URINE 2+ (NEGATIVE); NITRITES,URINE POSITIVE (NEGATIVE); PROTEIN,URINE 1+ (NEGATIVE); UROBILINOGEN,URINE NORMAL (NORMAL)
[2024-11-30 04:42] LABS: APPEARANCE,URINE CLEAR (CLEAR); BACTERIA,URINE 3+ /HPF (NEGATIVE); COLOR,URINE YELLOW (YELLOW); RBC,URINE NONE SEEN /HPF (0-3); SQUAMOUS EPITHELIAL CELL,UR RARE /HPF (NEGATIVE)
--- NOTE | 2024-11-30 04:47 | EKG ---
Test Reason : Chesr Pain RO MT Blood Pressure : */* mmHG Vent. Rate : 87 BPM Atrial Rate : 87 BPM P-R Int : 152 ms QRS Dur : 82 ms QT Int : 404 ms P-R-T Axes : 47 -33 34 degrees QTc Int : 486 ms Normal sinus rhythm Poor R-wave progression Left axis deviation Moderate voltage criteria for LVH, may be normal variant ( R in aVL , [place] product ) Abnormal ECG When compared with ECG of 29-NOV-2024 21:33, (Unconfirmed) No significant change was found Confirmed by Juan Ravi MD ([id number]) on 11/30/2024 7:22:45 AM Referred By: Confirmed By: Juan Ravi MD
[2024-11-30 06:16] LABS: BASOPHILS % (AUTO) 1.2 % (0.2-1.0); EOSINOPHILS # (AUTO) 0.1 x10^3/uL (0.0-0.2); EOSINOPHILS % (AUTO) 3.3 % (0.9-2.9); HEMATOCRIT 36.1 % (36.0-47.0); HEMOGLOBIN 12.7 g/dL (12.0-16.0); LYMPHOCYTES # (AUTO) 1.7 X10^3/uL (1.3-2.9); LYMPHOCYTES % (AUTO) 44.2 % (21.0-51.0); MEAN CORPUSCULAR HEMOGLOBIN 30.8 pg (27.0-34.0); MEAN CORPUSCULAR HGB CONC 35.1 g/dL (33.0-35.0); MEAN CORPUSCULAR VOLUME 87.5 fL (80.0-100.0); MEAN PLATELET VOLUME 7.5 fL (7.4-11.0); MONOCYTES # (AUTO) 0.7 x10^3/uL (0.3-0.8); NEUTROPHILS # (AUTO) 1.2 x10^3/uL (2.2-4.8); NEUTROPHILS % (AUTO) 32.3 % (42.0-75.0); PLATELET COUNT 286 X10^3/uL (150.0-450.0); RED BLOOD COUNT 4.12 X10^6/uL (3.5-5.4); RED CELL DISTRIBUTION WIDTH 14.1 % (11.6-16.5); WHITE BLOOD COUNT 3.8 X10^3/uL (3.6-10.0)
[2024-11-30 06:29] LABS: ALANINE AMINOTRANSFERASE 23 Units/L (12-78); ALBUMIN 3.1 g/dL (3.4-5.0); ALKALINE PHOSPHATASE 95 Units/L (46-116); ASPARTATE AMINO TRANSFERASE 26 Units/L (15-37); BLOOD UREA NITROGEN 9 mg/dL (7-18); CARBON DIOXIDE 31.3 mmol/L (21-32); CHLORIDE 101 mmol/L (98-107); COR CA(FOR HYPOALB) 9.7 mg/dL (8.5-10.1); COR NA(FOR HYPERGLY) 139 mmol/L (136-145); CREATININE 1.06 mg/dL (0.55-1.02); GLUCOSE 129 mg/dL (65-99); MAGNESIUM 1.6 mg/dL (2.0-2.9); POTASSIUM 4.2 mmol/L (3.5-5.1); SODIUM 138 mmol/L (136-145); TOTAL PROTEIN 7.3 g/dL (6.4-8.2); eGFR NON BLACK RACES 55 (>60)
[2024-11-30] MEDS ORDERED: CONSULT PHARMACY - POTASSIUM & MAGNESIUM XX SCH (07:00)
--- NOTE | 2024-11-30 08:16 | RAD ---
EXAM:CHEST, 1 VIEWHISTORY:C/P R/O M/I;COMPARISON:05/04/2024TECHNIQUE:AP portableFINDINGS:Unremarkable cardiac silhouette. No focal consolidation, pleural effusion, or pneumothorax.IMPRESSION:No acute cardiopulmonary findings.THIS IS AN ELECTRONICALLY VERIFIED FINAL REPORT11/30/2024 8:13 AM - Electronically signed by Bennie Troy MD
[2024-11-30] MEDS ORDERED: ZESTRIL TAB 20 MG ONE (08:27)
[2024-11-30] MEDS: MAG-OX TAB PO SCH (08:31)
[2024-11-30] MEDS: LOPRESSOR TAB 50 MG PO SCH (08:58)
[2024-11-30] MEDS: LOVENOX INJ 40 MG SYR SC SCH (08:59)
[2024-11-30 09:41] VITALS: RESP 18; TEMP 98.1
[2024-11-30] MEDS: NEURONTIN CAP 300 MG PO SCH (13:34)
[2024-11-30 15:02] VITALS: BP 175/90; PULSE 76; O2SAT 97
[2024-11-30] MEDS ORDERED: CELEXA PO SCH (21:00)
== END 2024-11-30 13:55 | disposition home or self-care (01) ==
LOC: MED/SURG
PROVIDERS: ADMIT Internal Medicine; ATTEND Internal Medicine
DX: J44.9 Chronic obstructive pulmonary disease, unspecified; M54.89 Other dorsalgia; E87.6 Hypokalemia; R29.6 Repeated falls; R94.31 Abnormal electrocardiogram [ECG] [EKG]; M54.2 Cervicalgia; E78.5 Hyperlipidemia, unspecified; F41.8 Other specified anxiety disorders; R07.89 Other chest pain; B96.29 Other Escherichia coli [E. coli] as the cause of diseases classified elsewhere; R20.0 Anesthesia of skin; R06.02 Shortness of breath; R53.1 Weakness; M19.90 Unspecified osteoarthritis, unspecified site; K21.9 Gastro-esophageal reflux disease without esophagitis; I10 Essential (primary) hypertension; E83.42 Hypomagnesemia; M79.602 Pain in left arm